=== PATIENT | female | born 1950 | race Caucasian/White ===

== ENCOUNTER 2023-07-17 10:33 | Observation (INO) ==
[2023-07-17] MEDS: MoRPHine SULFATE 4 MG/ML 1 ML CARP\\VIAL IV STA (11:00)
[2023-07-17 11:19] LABS: BUN Creatinine Ratio 16.1 (10-20); Calcium 9.3 mg/dl (8.6-10.3); Creatinine Clr Calc Pharmacy 92.9 ml/min; Est GFR (African American) 104.4 ml/min; Est GFR (Non-African American) 90.1 ml/min; Potassium 2.9 mmol/L (3.5-5.1)
[2023-07-17] MEDS: fentaNYL citrate PF 100 MCG/2 ML VIAL IV STA (11:27)
[2023-07-17] MEDS: ONDANSETRON INJ 2 MG/ML 2 ML VIAL IV STA (11:27)
[2023-07-17 11:30] LABS: Basophils # (auto) 0.03 K/uL (0.00-0.20); Basophils % (auto) 0.5 %; Eosinophils # (auto) 0.72 K/uL (0.00-0.50); Eosinophils % (auto) 11.6 %; Hematocrit (blood only) 35.1 % (37.0-47.0); Hemoglobin 10.9 g/dl (12.0-16.0); Immature Granulocytes # (auto) 0.02 K/uL (0.01-0.20); Immature Granulocytes % (auto) 0.3 %; Lymphocytes # (auto) 1.25 K/uL (1.20-3.40); Lymphocytes % (auto) 20.1 %; Mean Corpuscular Hemoglobin 25.6 pg (25.0-34.0); Mean Corpuscular Hgb Conc 31.1 g/dL (32.0-36.0); Mean Corpuscular Volume 82.6 fL (80.0-100.0); Mean Platelet Volume 10.2 fL (9.4-12.4); Monocytes # (auto) 0.51 K/uL (0.11-0.59); Monocytes % (auto) 8.2 %; Neutrophils # (auto) 3.68 K/uL (1.40-6.50); Neutrophils % (auto) 59.3 %; Platelet Count 341 K/uL (130-400); RDW Coefficient of Variation 16.4 % (11.5-14.5); RDW Standard Deviation 49.5 fL (36.4-46.3); Red Blood Count 4.25 M/uL (4.20-5.40); White Blood Count 6.21 K/ul (4.8-10.8)
[2023-07-17] MEDS: KETAMINE HCL IV ONE (11:30)
--- NOTE | 2023-07-17 11:30 | XRay Report ---
SINGLE VIEW PELVIS CLINICAL HISTORY: Arthroplasty dislocation. FINDINGS: An AP, portable, supine pelvic radiograph is compared to study dated 06/19/2023. The skeleta l structures are osteopenic. No fracture is seen. A left hip arthroplasty is in place. There is super ior dislocation of the femoral component of the arthroplasty. Mild overlying soft tissue edema is not ed. Moderate osteoarthritic change is seen in the right hip. Degenerative sclerosis is noted in the s acroiliac joints and pubic symphysis. IMPRESSION: 1. Left hip arthroplasty dislocation as above. 2. No fracture is seen. Electronically signed by: Phill Davila M.D. 07/17/2023 11:29 AM
[2023-07-17 11:39] LABS: Partial Thromboplastin Ratio 0.8; Partial Thromboplastin Time 21 Seconds (21-31); Prothrombin Time 11.2 Seconds (9.0-12.0)
--- NOTE | 2023-07-17 11:42 | Emergency Department Note ---
History of Present Illness General Chief complaint: Hip Pain Stated complaint: L HIP DISLOCATION, LETHARGIC Time Seen by Provider: 07/17/23 10:35 Source: patient and EMS History of Present Illness Provider complaint: Left hip dislocation Onset (ago): hour(s) 2 Location: lower extremity and left Maximum Pain Intensity: 10 Current Pain Intensity: 10 Quality: + stabbing and + sharp Relieved By: + immobilization Exacerbated By: + movement Associated symptoms: no chest pain, no cough, no fever/chills, no headaches, no nausea/vomiting or no shortness of breath 73-year-old female presents emergency department for left hip pain. Patient states she went to sit down on her chair and felt a pop in her left hip and felt like her hip was dislocated again. Patient denies any trauma or falls. She states she just went to sit down and felt a pop. Son at bedside confirms no fall or trauma. Patient reports pain in her left hip. Pain is made better with immobilization worse with movement. No headache. No abdominal pain. Patient states a similar episode occurred a few months ago where her hip was dislocated and needed to be reduced in the emergency department. Patient states she has not been wearing her brace as instructed. Patient states her left hip is a prosthetic that was operated on in [place] and the doctor in [place] stated that the dislocations could keep happening. EMS reported that the patient was initially hypotensive but really wanted to fluids. Home Medications Medication Instructions Recorded Confirmed Type doxycycline monohydrate 100 mg 100 mg PO BID 07/17/23 History capsule famotidine 40 mg tablet 40 mg PO DAILY 07/17/23 History furosemide 20 mg tablet 20 mg PO DAILY PRN Edema 07/17/23 History gabapentin 400 mg capsule 400 mg PO DAILY 07/17/23 History gabapentin 600 mg tablet 600 mg PO DAILY 07/17/23 History trazodone 100 mg tablet 100 mg PO UD 07/17/23 History Allergies Allergy/AdvReac Type Severity Reaction Status Date / Time No Known Allergies Allergy Unverified 07/17/23 12:22 Past Med/Surg History Problem List History of left hip replacement Hip dislocation, left Surgical History S/P hip replacement Social History Smoking Status: Former smoker Tobacco Type: Cigarettes Hx Substance Use: No Feels Safe at Home: Yes Physical Exam Vital Signs Vital Signs - 24 hr 07/17/23 10:40 07/17/23 10:40 07/17/23 10:45 Temperature 36.5 C Temperature Source Oral Pulse Rate 73 69 85 Pulse Rate from SpO2 Sensor Respiratory Rate 24 24 Respiratory Effort / Characteristics Non-Labored Spontaneous Respiratory Depth Normal Respiratory Pattern Agonal Blood Pressure 170/90 H Blood Pressure Mean 116 Pulse Oximetry 90 Oxygen Delivery Method Room Air Oxygen Flow Rate Sepsis Recent Fever Within 48 Hours No Sepsis New/Unexplained Change in Mental Status N/A Sepsis Action Taken by Nursing No Action Required End-Tidal CO2 07/17/23 10:57 07/17/23 10:58 07/17/23 11:18 Temperature Temperature Source Pulse Rate 93 H 89 Pulse Rate from SpO2 Sensor 91 H 69 Respiratory Rate 12 15 Respiratory Effort / Characteristics Respiratory Depth Respiratory Pattern Blood Pressure 185/114 H 185/114 H 193/118 H Blood Pressure Mean 137 148 143 Pulse Oximetry 97 100 Oxygen Delivery Method Non-rebreather Oxygen Flow Rate 15 Sepsis Recent Fever Within 48 Hours Sepsis New/Unexplained Change in Mental Status Sepsis Action Taken by Nursing End-Tidal CO2 29 07/17/23 11:26 07/17/23 11:27 07/17/23 11:40 Temperature Temperature Source Pulse Rate 90 79 Pulse Rate from SpO2 Sensor 89 Respiratory Rate 13 10 L Respiratory Effort / Characteristics Respiratory Depth Respiratory Pattern Blood Pressure 129/93 190/96 H Blood Pressure Mean 105 148 Pulse Oximetry 100 100 Oxygen Delivery Method Non-rebreather Oxygen Flow Rate 15 Sepsis Recent Fever Within 48 Hours Sepsis New/Unexplained Change in Mental Status Sepsis Action Taken by Nursing End-Tidal CO2 33 36 07/17/23 11:45 07/17/23 11:50 07/17/23 12:10 Temperature Temperature Source Pulse Rate 86 89 85 Pulse Rate from SpO2 Sensor 90 86 Respiratory Rate 12 12 14 Respiratory Effort / Characteristics Respiratory Depth Respiratory Pattern Blood Pressure 172/92 H 184/99 H 171/97 H Blood Pressure Mean 118 118 144 Pulse Oximetry 96 100 99 Oxygen Delivery Method Nasal Cannula Oxygen Flow Rate 4 Sepsis Recent Fever Within 48 Hours Sepsis New/Unexplained Change in Mental Status Sepsis Action Taken by Nursing End-Tidal CO2 38 39 41 07/17/23 12:15 Temperature Temperature Source Pulse Rate 85 Pulse Rate from SpO2 Sensor 86 Respiratory Rate 12 Respiratory Effort / Characteristics Respiratory Depth Respiratory Pattern Blood Pressure Blood Pressure Mean Pulse Oximetry 97 Oxygen Delivery Method Oxygen Flow Rate Sepsis Recent Fever Within 48 Hours Sepsis New/Unexplained Change in Mental Status Sepsis Action Taken by Nursing End-Tidal CO2 41 Physical Exam HENT: Exam performed. -Head: Normocephalic and atraumatic. -Right Ear: External ear normal. No mastoid erythema -Left Ear: External ear normal. No mastoid erythema -Mouth/Throat: The oropharynx is clear and moist. No trismus in the jaw. No dental abscesses or uvula swelling. No oropharyngeal exudate or tonsillar abscesses. EYES: Conjunctivae and EOM are normal. Pupils are equal, round, and reactive to light. Right eye exhibits no discharge. Left eye exhibits no discharge. No scleral icterus. NECK: Normal range of motion. Neck supple. No JVD present. No spinous process tenderness present. CV: Normal rate, regular rhythm, normal heart sounds and intact distal pulses. There is no peripheral edema. Palpable radial pulses bue. PULM/CHEST: Effort normal and breath sounds normal. No respiratory distress. No stridor. She has no wheezes. She has no rales. ABD: The abdomen is soft. There is no tenderness. There is no rebound, no guarding MUSC/SKEL: Pain on palpation of the left hip. Left lower extremity is shortened and internally rotated. Palpable DP and PT pulses bilateral lower extremities. NEURO: Motor and sensation grossly intact GCS eye subscore is 4. GCS verbal subscore is 5. GCS motor subscore is 6. Cerebellar tests wnl. Procedures FAST Exam FAST Exam 1: Fluid in Morison's pouch: No Fluid in Splenorenal Junction: No Fluid around bladder, Transverse view: No Fluid around bladder, Sagittal view: No Fluid in Pericardial Sac: No Gross Wall Motion Abnormality: No Study normal for this patient: Yes Procedural Sedation Indication: fracture/dislocation reduction ASA Class: II Preparation: synthetic gem press operator applied, pulse oximeter, capnometry used, supplemental O2 applied, suction/airway equipment at bedside and IV secured Fentanyl: IV (100 micrograms) Ketamine: IV (42.5) Patient Tolerated Procedure: well Complications: none Additional Comments: Procedural Sedation Indication: reduction L hip. Total time: 16 minutes. Written consent was obtained after the risks and benefits were explained to the paitent and son, including, but not limited to aspiration, allergic reaction, breathing difficulties, cardiac complications, vomiting, pain, event recall, bleeding, and/or infection. Pre-sedation examination and paperwork completed. The patient was on 100% oxygen via NRB prior to the procedure. Continous end tidal CO2 monitoring, pulse oximetry, and cardiac monitoring were utilized. Suction, airway equipment, medications, respiratory equipment, and appropriate personnel were prepared prior to the initiation of the procedure. A time out was taken. Sedation was achieved utilizing 42.5 mg of ketamine. After I observed the patient had reached the appropriate level of sedation the main procedure was performed without complication. Sedation was discontinued and the monitoring continued. The patient recovered quickly from the effects of the medication without complication or adverse event. Course Course 1035: The patient was evaluated in room A1. A complete history and physical exam was performed Cardiac monitoring: An order was placed for continuous cardiac monitoring. The monitor shows a rate of 80 with sinus rhythm interpreted by me Clinically the patient's lower extremity looks dislocated. Will plan on reduction in the emergency department. 1240: Vital signs stable. Hip was reduced by Dr. Hyde see his procedure note. Patient and son states that the patient cannot go back home as he lives at home with many steps and they are requesting that the patient be evaluated for rehab. Patient will be admitted to the [facility] team. Discussed case with Dr. Buckley who agrees patient can be admitted to them and agrees to be on consult and that the patient might need placement at rehab facility. He states he can be on consult. Administered Medications Discontinued Medications Fentanyl Citrate (Fentanyl Citrate Pf 100 Mcg/2 Ml Vial) 100 mcg IV NOW STA Stop: 07/17/23 11:21 Last Admin: 07/17/23 11:27 Dose: 100 mcg Documented By: BS Ketamine HCl 85 mg/ Syringe 9.7 mls @ 9.7 mls/min IV NOW ONE Stop: 07/17/23 11:05 Last Admin: 07/17/23 11:30 Dose: 9.7 mls/min Documented By: SS Morphine Sulfate (Morphine Sulfate 4 Mg/Ml 1 Ml Carp\Vial) 4 mg IV NOW STA Stop: 07/17/23 10:51 Last Admin: 07/17/23 11:00 Dose: 4 mg Documented By: JERRYW Ondansetron HCl (Ondansetron Inj 2 Mg/Ml 2 Ml Vial) 4 mg IV NOW STA Stop: 07/17/23 11:21 Last Admin: 07/17/23 11:27 Dose: 4 mg Documented By: GELA Propofol (Propofol Iv Emulsion 10 Mg/Ml 20 Ml Vial) 200 mg IV NOW STA Stop: 07/17/23 11:00 Last Admin: 07/17/23 11:43 Dose: Not Given Documented By: KRISTINE Medical Decision Making Laboratory Data Attestation: I reviewed the patient's lab results. 07/17/23 10:55 07/17/23 10:55 Lab Results 07/17/23 Range/Units 10:55 WBC 6.21 (4.8-10.8) K/ul RBC 4.25 (4.20-5.40) M/uL Hgb 10.9 L (12.0-16.0) g/dl Hct 35.1 L (37.0-47.0) % MCV 82.6 (80.0-100.0) fL MCH 25.6 (25.0-34.0) pg MCHC 31.1 L (32.0-36.0) g/dL RDW Std Deviation 49.5 H (36.4-46.3) fL RDW Coeff of Rosette 16.4 H (11.5-14.5) % Plt Count 341 (130-400) K/uL MPV 10.2 (9.4-12.4) fL Immature Gran % (Auto) 0.3 % Neut % (Auto) 59.3 % Lymph % (Auto) 20.1 % Saline % (Auto) 8.2 % Eos % (Auto) 11.6 % Baso % (Auto) 0.5 % Neut # (Auto) 3.68 (1.40-6.50) K/uL Lymph # (Auto) 1.25 (1.20-3.40) K/uL Saline # (Auto) 0.51 (0.11-0.59) K/uL Eos # (Auto) 0.72 H (0.00-0.50) K/uL Baso # (Auto) 0.03 (0.00-0.20) K/uL Immature Gran # (Auto) 0.02 (0.01-0.20) K/uL PT 11.2 (9.0-12.0) Seconds INR 1.0 (0.9-1.1) APTT 21 (21-31) Seconds PTT Ratio 0.8 Sodium 140 (136-145) mmol/L Potassium 2.9 L (3.5-5.1) mmol/L Chloride 105 (98-107) mmol/L Carbon Dioxide 26 (21-32) mmol/L Anion Gap 9 (3-11) BUN 10 (6-23) mg/dl Creatinine 0.62 (0.6-1.2) mg/dl Est Cr Clr Drug Dosing 92.9 ml/min Est GFR ( Amer) 104.4 ml/min Est GFR (Non-Af Amer) 90.1 ml/min BUN/Creatinine Ratio 16.1 (10-20) Glucose 111 H (70-99(Fasting)) mg/dl Calcium 9.3 (8.6-10.3) mg/dl Imaging Data Attestation: I personally reviewed and interpreted this imaging study as follows: My Impression: Pelvis x-ray #1: Left hip dislocation. No fracture. Pelvis x-ray #2: Successful reduction of the left hip. No fracture. Radiologist's Impression: Pelvis X-Ray 07/17/23 10:36 SINGLE VIEW PELVIS CLINICAL HISTORY: Arthroplasty dislocation. FINDINGS: An AP, portable, supine pelvic radiograph is compared to study dated 06/19/2023. The skeletal structures are osteopenic. No fracture is seen. A left hip arthroplasty is in place. There is superior dislocation of the femoral component of the arthroplasty. Mild overlying soft tissue edema is noted. Moderate osteoarthritic change is seen in the right hip. Degenerative sclerosis is noted in the sacroiliac joints and pubic symphysis. IMPRESSION: 1. Left hip arthroplasty dislocation as above. 2. No fracture is seen. Electronically signed by: Phill Davila M.D. 07/17/2023 11:29 AM Pelvis X-Ray 07/17/23 11:32 SINGLE VIEW PELVIS CLINICAL HISTORY: Postreduction examination. FINDINGS: An AP, portable, supine pelvic radiograph is compared to study performed earlier the same day 07/17/2023. The skeletal structures are osteopenic. No fracture is seen. There has been successful reduction of the dislocated left hip arthroplasty with methodist of near-anatomic alignment. Mild overlying soft tissue edema is noted. Moderate to severe osteoarthritic change is seen in the right hip. Degenerative sclerosis is noted in the sacroiliac joints and pubic symphysis. There is atherosclerotic calcification of the femoral arteries. IMPRESSION: 1. There has been successful. Reduction of the dislocated left hip arthroplasty with methodist of near-anatomic alignment. 2. No fracture is seen. Electronically signed by: Phill Davila M.D. 07/17/2023 12:07 PM ECG Data Attestation: I personally reviewed and interpreted this ECG as follows: Rate (beats per minute): 67 Rhythm: + normal sinus ECG Intervals/blocks: + Normal MN and + Normal QT-c ECG ST segments: + Normal ST segments Additional Comments: QRS 72 MDM Narrative 1035: The patient was evaluated in room A1. A complete history and physical exam was performed Cardiac monitoring: An order was placed for continuous cardiac monitoring. The monitor shows a rate of 80 with sinus rhythm interpreted by me Clinically the patient's lower extremity looks dislocated. Will plan on reduction in the emergency department. 1240: Vital signs stable. Hip was reduced by Dr. Hyde see his procedure note. Patient and son states that the patient cannot go back home as he lives at home with many steps and they are requesting that the patient be evaluated for rehab. Patient will be admitted to the [facility] hospitalist team. Discussed case with Dr. Buckley who agrees patient can be admitted to them and agrees to be on consult and that the patient might need placement at rehab facility. He states he can be on consult. Impression & Plan Hip dislocation, left Discharge Plan Visit Data Chief Complaint: Hip Pain Stated Complaint: L HIP DISLOCATION, LETHARGIC ED Provider: Richard Crockett Discharge Problem: Hip dislocation, left Patient Disposition: Being Evaluated by Hospitalist Forms Stand Alone Forms: My [facility] Prescriptions Prescriptions: No Action gabapentin 600 mg tablet 600 mg PO DAILY famotidine 40 mg tablet 40 mg PO DAILY gabapentin 400 mg capsule 400 mg PO DAILY trazodone 100 mg tablet 100 mg PO UD doxycycline monohydrate 100 mg capsule 100 mg PO BID furosemide 20 mg tablet 20 mg PO DAILY PRN (Reason: Edema) Referrals Referrals: Dao Jefferson PA-C [Primary Care Provider] - Discharge Problem: Hip dislocation, left Qualifiers: Encounter type: initial encounter Qualified Code(s): S73.005A - Unspecified dislocation of left hip, initial encounter
[2023-07-17] MEDS: PROPOFOL IV EMULSION 10 MG/ML 20 ML VIAL IV STA (11:43)
--- NOTE | 2023-07-17 11:43 | Emergency Department Note ---
Pre Sedation Assessment Vital Signs Temp Pulse Pulse Resp BP BP Pulse Ox 07/17/23 13:00 79 25 H 94 07/17/23 13:00 177/112 H 07/17/23 12:49 70 16 162/121 H 97 07/17/23 12:41 162/121 H 07/17/23 12:27 79 96 07/17/23 12:21 88 99 07/17/23 12:20 176/98 H 07/17/23 12:18 85 11 L 97 07/17/23 12:15 85 12 97 07/17/23 12:10 85 14 171/97 H 99 07/17/23 11:50 89 12 184/99 H 100 07/17/23 11:46 07/17/23 11:45 12 203/115 H 94 07/17/23 11:45 86 12 172/92 H 96 07/17/23 11:45 07/17/23 11:40 94 H 18 201/115 H 100 07/17/23 11:40 79 10 L 190/96 H 100 07/17/23 11:40 07/17/23 11:35 85 10 L 190/96 H 100 07/17/23 11:35 07/17/23 11:30 99 H 11 L 201/116 H 100 07/17/23 11:30 07/17/23 11:27 90 13 100 07/17/23 11:26 129/93 07/17/23 11:18 89 15 193/118 H 100 07/17/23 10:58 185/114 H 07/17/23 10:57 93 H 12 185/114 H 97 07/17/23 10:45 85 24 07/17/23 10:40 69 07/17/23 10:40 36.5 C 73 24 170/90 H 90 O2 Del Method O2 Flow Rate 07/17/23 13:00 07/17/23 13:00 07/17/23 12:49 Room Air 07/17/23 12:41 07/17/23 12:27 07/17/23 12:21 07/17/23 12:20 07/17/23 12:18 07/17/23 12:15 07/17/23 12:10 07/17/23 11:50 07/17/23 11:46 Room Air 07/17/23 11:45 Nasal Cannula 07/17/23 11:45 Nasal Cannula 4 07/17/23 11:45 Nasal Cannula 4 07/17/23 11:40 07/17/23 11:40 Non-rebreather 15 07/17/23 11:40 Non-rebreather 15 07/17/23 11:35 Non-rebreather 07/17/23 11:35 Non-rebreather 15 07/17/23 11:30 Non-rebreather 07/17/23 11:30 Non-rebreather 15 07/17/23 11:27 07/17/23 11:26 07/17/23 11:18 Non-rebreather 15 07/17/23 10:58 07/17/23 10:57 07/17/23 10:45 07/17/23 10:40 07/17/23 10:40 Room Air Cardiovascular RRR, no murmur, no edema Respiratory normal respiratory effort, lungs clear to auscultation Pre-Sedation Airway Assessment Smoking Status: Former smoker Hx Sleep Apnea: No Short, Thick Neck: No Thyromental Distance: > or= 3.5 Finger Breadths Oral Cavity: + WNL Mallampati Class: III ASA: ASA1 Notes The planned sedation has been discussed with the patient. Informed Consent was obtained. I have identified the patient, determined the appropriateness of sedation and have assessed the patient immediately prior to the procedure. All medicine(s) and interventions are by my order.
--- NOTE | 2023-07-17 11:58 | History & Physical Report ---
Date of Service July 17, 2023 Assessment & Plan (1) Hip dislocation, left: Plan: Patient was sitting in bent over and felt a "pop" in her left hip on 07/16 Recent left hip dislocation on 06/18 Pelvic x-ray on arrival revealed left hip arthroplasty dislocation Hip was reduced in the ED under ketamine and propofol; successful reduction Orthopedics consulted Acetaminophen as needed for pain 1-3 Dilaudid 0.5-1.0 mg IV q4h as needed for breakthrough pain PT/OT evaluations appreciated Fall precautions Case management consulted for rehab upon discharge A.m. CBC, BMP (2) History of left hip replacement: Plan: Left hip replacement in January 2023, and fall/revision in April 2023 (both in [place]) (3) Hypokalemia: Plan: K 2.9 on arrival Potassium supplementation 20mEq x 2 Trend BMP (4) Leg swelling: Plan: Patient began taking Lasix 10 mg p.o. 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 She presented on 07/16 after sitting in a chair and feeling her left hip "pop". No syncope, no LOC, no fall. She reports that she sat down in her chair, and bent over/twisted her leg from left to right (internal rotation) and suddenly heard a pop with severe left hip pain. Patient had the hip reduced in the ED, and is currently left hip pain-free. Recent hip replacement in January 2023, with a fall in April 2023 requiring additional surgery. Patient recently moved in with her son in the beginning of June; was previously living in [place]. She has had 2 hip dislocations since, with the last being on Sunday 06/18, and then again today on 07/16. Patient ambulates with a walker/cane at baseline, but reports she has not been using it recently. She denies any recent falls since April. Patient did take her morning medications, including her doxycycline which she takes chronically for suppressive therapy following a PICC line/staph infection. The only medication she did not take this morning was her "water pill". She does note she is had increased leg swelling recently; no PMH of CHF to her knowledge; she was scheduled for an echocardiogram this upcoming Wednesday on 07/22. Patient also notes she has a history of seizures, but is not currently on medications for thi s; son reports that she will stare off into blank space; no LOC when this happens. Patient's SpO2 was 100% on nonrebreather 15 L. ED course: Morphine sulfate 4 mg IV Propofol 200 mg IV Ketamine 85 mg IV Zofran 4 mg IV Fentanyl 100 mcg IV ROS: Patient endorses left hip pain, lightheadedness with walking, feeling off balance, ambulatory dysfunction, FERNÁNDEZ, and orthopnea. Patient denies fever, chills, night sweats, new body aches, headache, chest pain, SOB at rest, chest palpitations, pleuritic CP, cough, abdominal pain, or N/V/D. Allergies Allergy/AdvReac Type Severity Reaction Status Date / Time No Known Allergies Allergy Unverified 07/17/23 12:22 Home Medications Medication Instructions Recorded Confirmed Type cetirizine 10 mg tablet 10 mg PO DAILY 07/17/23 07/17/23 History doxycycline monohydrate 100 mg 100 mg PO BID 07/17/23 07/17/23 History capsule famotidine 40 mg tablet 40 mg PO DAILY 07/17/23 07/17/23 History furosemide 20 mg tablet 20 mg PO DAILY PRN Edema 07/17/23 07/17/23 History gabapentin 400 mg capsule 400 mg PO DAILY 07/17/23 07/17/23 History gabapentin 600 mg tablet 600 mg PO DAILY 07/17/23 07/17/23 History trazodone 100 mg tablet 200 mg PO HS 07/17/23 07/17/23 History Past Med/Surg History Problem List (Updated 07/17/23 @ 12:52 by Jamarcus Owens PA-C) History of staphylococcal infection Ambulatory dysfunction Hypokalemia Leg swelling History of left hip replacement Hip dislocation, left Surgical History S/P hip replacement Social History Smoking Status: Former smoker Tobacco Type: Cigarettes Smoking End Date: 2 years ago; Second Hand Exposure: No; Do You Dip or Chew Tobacco: No; Tobacco Cessation Education Requested by Patient: No Hx Alcohol Use: No Hx Substance Use: No Preferred Language: South African Communication Ability: Effective Wheel Cutter Required: No Beliefs That Will Affect Care: None Current Living Situation: Family Current Living Situation Comment: With son Other Information That Helps Us Care for You: No Feels Safe at Home: Yes Safety Concerns: Feels Safe At This Time Assistive Devices: Cane and Walker Review of Systems Review of Systems: See HPI above Physical Exam Physical Exam: General: no acute distress; non-toxic appearing; well-nourished; cooperative HEENT: normocephalic, atraumatic; no scleral icterus; PERRLA w/ EOMs intact; moist mucus membrane; vision and hearing grossly intact Neck: supple; no lymphadenopathy; trachea midline Skin: warm, dry without signs of tenting; no cyanosis; no rashes, bruising, lesions, or erythema noted CV: chest wall NTP; RRR; S1/S2 normal; no murmurs/rubs/gallops; pulses intact and symmetric at radial, DP, and PT Lungs: no acute respiratory distress; symmetrical chest wall expansion; clear breath sounds across all lung lovell w/o adventitious sounds; no wheezing ABD: Soft, NTP; BS present; no rebound/guarding; no distention LLE: Left hip is TTP; no signs of bruising or active bleeding; mild pain with passive ROM of left hip MSK: no tics or fasciculations; nonpitting edema noted in the LEs b/l, nonerythematous Neuro: A&Ox3; normal mood and affect; fluent speech; no focal deficits; sensation grossly intact in the LEs b/l Results & Data Results & Data Vital Signs (Past 12 Hours) Vital Signs Temp Pulse Resp BP Pulse Ox O2 Del Method O2 Flow Rate 07/17/23 11:27 90 13 100 07/17/23 11:26 129/93 07/17/23 11:18 89 15 193/118 H 100 Non-rebreather 15 07/17/23 10:58 185/114 H 07/17/23 10:57 93 H 12 185/114 H 97 07/17/23 10:45 85 24 07/17/23 10:40 69 07/17/23 10:40 36.5 C 73 24 170/90 H 90 Room Air Laboratory Results Abnormal lab results 07/17/23 Range/Units 10:55 Hgb 10.9 L (12.0-16.0) g/dl Hct 35.1 L (37.0-47.0) % MCHC 31.1 L (32.0-36.0) g/dL RDW Std Deviation 49.5 H (36.4-46.3) fL RDW Coeff of Rosette 16.4 H (11.5-14.5) % Eos # (Auto) 0.72 H (0.00-0.50) K/uL Potassium 2.9 L (3.5-5.1) mmol/L Glucose 111 H (70-99(Fasting)) mg/dl Diagnostic Findings Pelvis X-Ray 07/17/23 10:36 SINGLE VIEW PELVIS CLINICAL HISTORY: Arthroplasty dislocation. FINDINGS: An AP, portable, supine pelvic radiograph is compared to study dated 06/19/2023. The skeletal structures are osteopenic. No fracture is seen. A left hip arthroplasty is in place. There is superior dislocation of the femoral component of the arthroplasty. Mild overlying soft tissue edema is noted. Moderate osteoarthritic change is seen in the right hip. Degenerative sclerosis is noted in the sacroiliac joints and pubic symphysis. IMPRESSION: 1. Left hip arthroplasty dislocation as above. 2. No fracture is seen. Electronically signed by: Phill Davila M.D. 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 She did not have any syncopal or presyncopal events prior to falling. Family expresses concern that patient has had difficulty ambulating, is too weak in her home environment, and is not safe and also requests a placement evaluation. Her hip was reduced under ketamine/propofol sedation in the ER; patient has subsequently been recommended for admission for placement which is not available on the weekend from ER. Of note patient was not lethargic or altered on arrival, is on nonrebreather following propofol/ketamine/fentanyl/morphine which were used during her reduction and was transiently sedated. At time of hospitalist assessment she is mentating normally, conversational without confusion, no distress, and is saturating normally on room air. With ER provider was distressed and tearful over her recurrent dislocations of the prosthesis. Son is present with her at bedside and they note that her recurrent dislocations and overall weakness are very limiting to her, they are not able to use the bathrooms appropriately at home and is not well set up, and she has not had good success previously with PT when they were in [place]. Are interested in PT/OT/CM consultations to discuss options. case was discussed with Ortho in the ER, no surgical revision or interventions were recommended. PG Care Time/CCT Total # of Minutes Spent Total Time Spent with Patient: Total time spent is greater than 50% in coordination of care (as documented) at patient's floor/unit and/or counseling patient: [place] [address] INT INP/OBS CARE 2/55MIN Patient Type New History Comprehensive Exam Comprehensive Medical Decision Making Moderate Complexity Diagnoses Hip dislocation, left S73.005A History of left hip replacement Z96.642 Hypokalemia E87.6 Leg swelling M79.89 History of staphylococcal infection Z86.19 Ambulatory dysfunction R26.2
--- NOTE | 2023-07-17 12:08 | XRay Report ---
SINGLE VIEW PELVIS CLINICAL HISTORY: Postreduction examination. FINDINGS: An AP, portable, supine pelvic radiograph is compared to study performed earlier the same d ay 07/17/2023. The skeletal structures are osteopenic. No fracture is seen. There has been successful r eduction of the dislocated left hip arthroplasty with denominational of near-anatomic alignment. Mild ov erlying soft tissue edema is noted. Moderate to severe osteoarthritic change is seen in the right hip . Degenerative sclerosis is noted in the sacroiliac joints and pubic symphysis. There is atherosclero tic calcification of the femoral arteries. IMPRESSION: 1. There has been successful. Reduction of the dislocated left hip arthroplasty with denominational of n ear-anatomic alignment. 2. No fracture is seen. Electronically signed by: Phill Davila M.D. 07/17/2023 12:07 PM
[2023-07-17] MEDS: POTASSIUM CHLORIDE CRTAB 20 MEQ TABCR PO STA (12:53)
--- NOTE | 2023-07-17 14:09 | Emergency Department Note ---
Post Sedation Assessment Vital Signs Temp Pulse Pulse Resp BP BP Pulse Ox 07/17/23 13:00 79 25 H 94 07/17/23 13:00 177/112 H 07/17/23 12:49 70 16 162/121 H 97 07/17/23 12:41 162/121 H 07/17/23 12:27 79 96 07/17/23 12:21 88 99 07/17/23 12:20 176/98 H 07/17/23 12:18 85 11 L 97 07/17/23 12:15 85 12 97 07/17/23 12:10 85 14 171/97 H 99 07/17/23 11:50 89 12 184/99 H 100 07/17/23 11:46 07/17/23 11:45 12 203/115 H 94 07/17/23 11:45 86 12 172/92 H 96 07/17/23 11:45 07/17/23 11:40 94 H 18 201/115 H 100 07/17/23 11:40 79 10 L 190/96 H 100 07/17/23 11:40 07/17/23 11:35 85 10 L 190/96 H 100 07/17/23 11:35 07/17/23 11:30 99 H 11 L 201/116 H 100 07/17/23 11:30 07/17/23 11:27 90 13 100 07/17/23 11:26 129/93 07/17/23 11:18 89 15 193/118 H 100 07/17/23 10:58 185/114 H 07/17/23 10:57 93 H 12 185/114 H 97 07/17/23 10:45 85 24 07/17/23 10:40 69 07/17/23 10:40 36.5 C 73 24 170/90 H 90 O2 Del Method O2 Flow Rate 07/17/23 13:00 07/17/23 13:00 07/17/23 12:49 Room Air 07/17/23 12:41 07/17/23 12:27 07/17/23 12:21 07/17/23 12:20 07/17/23 12:18 07/17/23 12:15 07/17/23 12:10 07/17/23 11:50 07/17/23 11:46 Room Air 07/17/23 11:45 Nasal Cannula 07/17/23 11:45 Nasal Cannula 4 07/17/23 11:45 Nasal Cannula 4 07/17/23 11:40 07/17/23 11:40 Non-rebreather 15 07/17/23 11:40 Non-rebreather 15 07/17/23 11:35 Non-rebreather 07/17/23 11:35 Non-rebreather 15 07/17/23 11:30 Non-rebreather 07/17/23 11:30 Non-rebreather 15 07/17/23 11:27 07/17/23 11:26 07/17/23 11:18 Non-rebreather 15 07/17/23 10:58 07/17/23 10:57 07/17/23 10:45 07/17/23 10:40 07/17/23 10:40 Room Air Recovery Score Activity: Moves 4 extremities Respiration: Deep Breath/Cough Circulation: +/-20% PreAnes Value Consciousness: Fully Awake Oxygen Saturation: > 92% On Room Air Post Anesthesia Score: 10 Post Sedation Plan On clinical assessment, the patient appears to have tolerated the sedation wi thout complications. Patient is recovering as anticipated. Patient will continue to be monitored by nursing and may be discharged when sedation discharge criteria are met per below protocol. Upon Completions of procedure up to 15 minutes continue every 5 minute vital signs and the P.A.R. score; then discharge to a Phase I or Fast Track to Phase II per the following guidelines: * Discharge Patient to appropriate Phase II area if PAR is 8 or greater or return to pre- procedure baseline. The post - procedure orders will be as directed. * If PAR score is less than 8 or not return to pre-procedure baseline then patient will follow Phase I monitoring till PAR is reached for Phase II. The Phase I may be done in procedure room or may call to secure a Phase I area. * If naloxone or flumazenil are used for reversal, hold in Phase I for continued monitoring from when last reversal dose was given for a minimum of 60 minutes or longer pending the nurse and/or physician discretion of patient condition before discharge to Phase II. Please call the Sedation Physician to re-evaluate and complete post-note for discharge to Phase II area. Do NOT discharge from procedure sedation or Phase 1 until post- sedation evaluation note is complete by procedure /sedation MD Sedation Discharge Instructions to be given to the patient at discharge to home. Sedation Data Sedation Times Sedation Start Date: 07/17/23 Sedation Start Time: 11:30 Sedation End Date: 07/17/23 Sedation End Time: 11:46 Total Sedation Time: 16 Procedure Times Procedure Start Time:: 11:30 Procedure End Time: 11:32
[2023-07-17] MEDS ORDERED: MoRPHine SULFATE 2 MG/ML CARP IV PRN (14:29)
[2023-07-17] MEDS ORDERED: MoRPHine SULFATE 4 MG/ML 1 ML CARP\\VIAL IV PRN (14:29)
[2023-07-17] MEDS ORDERED: MELATONIN 3 MG TAB PO PRN (14:29)
[2023-07-17] MEDS: STAT IV/IM STA (15:46)
--- NOTE | 2023-07-17 15:49 | XRay Report ---
LEFT HIP 2 VIEWS CLINICAL HISTORY: Left hip pain. FINDINGS: AP and crosstable lateral views of the left hip are compared to studies performed earlier t he same day 07/17/2023. The skeletal structures are osteopenic. A bipolar left hip arthroplasty is in n ear anatomic alignment. No periprosthetic lucency is seen. There is no radiographic evidence of acute fracture involving the left hip or the visualized left hemipelvis. Mild overlying soft tissue edema is noted. There atherosclerotic calcification of the left femoral artery. IMPRESSION: 1. No acute fracture is identified. 2. A left hip arthroplasty is in near anatomic alignment. Electronically signed by: Phill Davila M.D. 07/17/2023 3:47 PM
[2023-07-17] MEDS: FAMOTIDINE 40 MG TABLET PO SCH (16:39)
[2023-07-17] MEDS: CETIRIZINE HCL 10 MG TABLET PO SCH ×2 (16:41→22:45)
[2023-07-17 17:47] LABS: Calcium 8.9 mg/dl (8.6-10.3); Creatinine Clr Calc Pharmacy 109.6 ml/min; Est GFR (African American) 109.9 ml/min; Est GFR (Non-African American) 94.9 ml/min; Magnesium 1.8 mg/dl (1.7-2.4); Potassium 3.1 mmol/L (3.5-5.1)
--- NOTE | 2023-07-17 18:40 | Procedure Note ---
Procedure Note Date of Service July 17, 2023 Note Left hip dislocation reduction procedure performed by Dr. Hyde Indication: Left hip dislocation Verbal & signed consent obtained. Risks and benefits were explained with the usual customary discussion. A time out was taken. Neurovascular examination before the procedure revealed good pedal pulse and normal sensation. The left hip dislocation was reduced by flexing the hip and subsequently applying mild internal/external rotation and then placing the hip at inline traction. This resulted in an easy reduction without complication. Neurovascular examination after the procedure revealed good pedal pulse with normal sensation. The patient had significant pain relief and tolerated the procedure well. Coding
[2023-07-17] MEDS: POTASSIUM CHLORIDE CRTAB 20 MEQ TABCR PO ONE (20:37)
[2023-07-17] MEDS: DOXYCYCLINE HYCLATE 100 MG CAP PO SCH (20:38)
[2023-07-17] MEDS: traZODone HCL 100 MG TAB PO SCH (20:38)
[2023-07-17] MEDS: ACETAMINOPHEN 325 MG TAB PO PRN (20:38)
[2023-07-17] MEDS ORDERED: Nursing to Pharmacy Communication SCH (21:45)
[2023-07-17] MEDS: GABAPENTIN 400 MG CAP PO SCH (22:44)
[2023-07-17] MEDS: HYDROCORTISONE 2.5% CR 30 GM TUBE EXT PRN (22:45)
[2023-07-17] MEDS: GABAPENTIN 600 MG TAB PO SCH (22:45)
[2023-07-17] MEDS: KETOROLAC TROMETHAMINE 15 MG/ML VIAL IV ONE (23:11)
--- NOTE | 2023-07-18 07:14 | Electrocardiogram Report ---
Test Reason : Blood Pressure : / mmHG Vent. Rate : 067 BPM Atrial Rate : 067 BPM P-R Int : 172 ms QRS Dur : 072 ms QT Int : 440 ms P-R-T Axes : 058 056 059 degrees QTc Int : 464 ms Normal sinus rhythm with sinus arrhythmia No previous ECGs available Confirmed by Tate Krause ([id number]) on 07/18/2023 7:14:32 AM Referred By: REFERRED SELF Confirmed By:Troy Krause
[2023-07-18 08:01] LABS: Basophils # (auto) 0.04 K/uL (0.00-0.20); Basophils % (auto) 0.8 %; Eosinophils # (auto) 0.94 K/uL (0.00-0.50); Eosinophils % (auto) 17.7 %; Hematocrit (blood only) 31.1 % (37.0-47.0); Hemoglobin 9.6 g/dl (12.0-16.0); Immature Granulocytes # (auto) 0.01 K/uL (0.01-0.20); Immature Granulocytes % (auto) 0.2 %; Lymphocytes # (auto) 1.32 K/uL (1.20-3.40); Lymphocytes % (auto) 24.8 %; Mean Corpuscular Hemoglobin 25.7 pg (25.0-34.0); Mean Corpuscular Hgb Conc 30.9 g/dL (32.0-36.0); Mean Corpuscular Volume 83.4 fL (80.0-100.0); Mean Platelet Volume 9.5 fL (9.4-12.4); Monocytes # (auto) 0.46 K/uL (0.11-0.59); Monocytes % (auto) 8.6 %; Neutrophils # (auto) 2.55 K/uL (1.40-6.50); Neutrophils % (auto) 47.9 %; Platelet Count 309 K/uL (130-400); RDW Coefficient of Variation 16.4 % (11.5-14.5); RDW Standard Deviation 49.6 fL (36.4-46.3); Red Blood Count 3.73 M/uL (4.20-5.40); White Blood Count 5.32 K/ul (4.8-10.8)
[2023-07-18 08:20] LABS: BUN Creatinine Ratio 16.9 (10-20); Calcium 8.6 mg/dl (8.6-10.3); Creatinine Clr Calc Pharmacy 98.4 ml/min; Est GFR (African American) 106.1 ml/min; Est GFR (Non-African American) 91.6 ml/min; Potassium 3.6 mmol/L (3.5-5.1)
[2023-07-18] MEDS ORDERED: GABAPENTIN 600 MG TAB PO SCH (09:00)
[2023-07-18] MEDS ORDERED: GABAPENTIN 400 MG CAP PO SCH (09:00)
--- NOTE | 2023-07-18 09:40 | Orthopedic Consultation ---
Date of Consultation July 18, 2023 Assessment & Plan (1) Prosthetic hip infection: (2) S/P closed reduction of dislocated total hip prosthesis: Findings discussed with patient. Complex situation. Hip infection with MRSA. Now unstable. On chronic suppressive antibiotics. Current recommendations are reinforcement of total hip precautions which I have done. Will get her a hip abduction brace. She can be out of bed with a knee immobilizer on weightbearing as tolerated with walker and PT. She will need follow-up with a specialist capable of taking care of of this complex situation. Possible tertiary care center. This can be set up as an outpatient. Aspirin for DVT prophylaxis. (3) History of left hip replacement: (4) Hip dislocation, left: History of Present Illness Attending Physician: Giuseppe Fofana MD History of Present Illness Janay is 73 years old. In January she had a left hip replacement done in [place]. She reports that somehow early after surgery she was diagnosed with MRSA. She was treated with antibiotics for that while she was at rehab. She then went home and was functioning fine. In March she developed pain in her hip and apparently developed sepsis. She laid in her home for 2 or 3 days with altered level of consciousness due to sepsis. Unable to summon help. Eventually her family could not contact her and summoned the granulator who checked on her. She was taken to the hospital where she was diagnosed with MRSA sepsis. Hip aspiration she reports had MRSA fluid in it. She then had another hip operation in April where the infection was cleaned out and the plastic liner was exchanged. She does not recall any more specific details than that. Subsequently she was on intravenous antibiotics for a number of weeks and has remained on chronic doxycycline. She moved to [place]. She admits to not being fully compliant with her hip precautions. About 1 month ago she was bending over dislocated her hip and had a reduced in the ER. Just yesterday she bent over again and her hip popped out. The it was reduced in the ER and she was admitted to the hospital. She reports no major issues other than the dislocation since the revision surgery. She has not been having serious hip pain or wound drainage. Allergies Allergy/AdvReac Type Severity Reaction Status Date / Time No Known Allergies Allergy Unverified 07/17/23 12:22 Home Medications Medication Instructions Recorded Confirmed Type cetirizine 10 mg tablet 10 mg PO DAILY 07/17/23 07/17/23 History doxycycline monohydrate 100 mg 100 mg PO BID 07/17/23 07/17/23 History capsule famotidine 40 mg tablet 40 mg PO DAILY 07/17/23 07/17/23 History furosemide 20 mg tablet 20 mg PO DAILY PRN Edema 07/17/23 07/17/23 History gabapentin 400 mg capsule 400 mg PO DAILY 07/17/23 07/17/23 History gabapentin 600 mg tablet 600 mg PO DAILY 07/17/23 07/17/23 History trazodone 100 mg tablet 200 mg PO HS 07/17/23 07/17/23 History Patient History Surgical History (Updated 07/18/23 @ 09:37 by Mikie Buckley MD) S/P hip replacement Social History Smoking Status: Former smoker Tobacco Type: Cigarettes Smoking End Date: 2 years ago; Second Hand Exposure: No; Do You Dip or Chew Tobacco: No; Tobacco Cessation Education Requested by Patient: No Hx Alcohol Use: No Hx Substance Use: No Preferred Language: Vietnamese Communication Ability: Effective Pow[employer] 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 May be a pos terior approach to the hip. The incision is benign. There is no erythema induration drainage or fluctuance. No tenderness to palpation. Left hip. She can do a leg lift and flex her knee about 30 degrees. She has 5 out of 5 ankle and toe plantarflexion dorsiflexion inversion eversion intact sensation. There is a knee immobilizer in place. 1+ leg edema and intact sensation. DP and PT pulses are 1+ palpable. Results & Data Vital Signs (Past 12 Hours) Vital Signs Temp Pulse Resp BP Pulse Ox O2 Del Method 07/18/23 07:20 Room Air 07/18/23 06:56 36.7 C 87 16 144/80 H 92 Room Air Laboratory Results Laboratory Results WBC 5.32 K/ul (4.8-10.8) 07/18/23 07:37 RBC 3.73 M/uL (4.20-5.40) L 07/18/23 07:37 Hgb 9.6 g/dl (12.0-16.0) L 07/18/23 07:37 Hct 31.1 % (37.0-47.0) L 07/18/23 07:37 MCV 83.4 fL (80.0-100.0) 07/18/23 07:37 MCH 25.7 pg (25.0-34.0) 07/18/23 07:37 MCHC 30.9 g/dL (32.0-36.0) L 07/18/23 07:37 RDW Std Deviation 49.6 fL (36.4-46.3) H 07/18/23 07:37 RDW Coeff of Rosette 16.4 % (11.5-14.5) H 07/18/23 07:37 Plt Count 309 K/uL (130-400) 07/18/23 07:37 MPV 9.5 fL (9.4-12.4) 07/18/23 07:37 Immature Gran % (Auto) 0.2 % 07/18/23 07:37 Neut % (Auto) 47.9 % 07/18/23 07:37 Lymph % (Auto) 24.8 % 07/18/23 07:37 Sevier % (Auto) 8.6 % 07/18/23 07:37 Eos % (Auto) 17.7 % 07/18/23 07:37 Baso % (Auto) 0.8 % 07/18/23 07:37 Neut # (Auto) 2.55 K/uL (1.40-6.50) 07/18/23 07:37 Lymph # (Auto) 1.32 K/uL (1.20-3.40) 07/18/23 07:37 Sevier # (Auto) 0.46 K/uL (0.11-0.59) 07/18/23 07:37 Eos # (Auto) 0.94 K/uL (0.00-0.50) H 07/18/23 07:37 Baso # (Auto) 0.04 K/uL (0.00-0.20) 07/18/23 07:37 Immature Gran # (Auto) 0.01 K/uL (0.01-0.20) 07/18/23 07:37 PT 11.2 Seconds (9.0-12.0) 07/17/23 10:55 INR 1.0 (0.9-1.1) 07/17/23 10:55 APTT 21 Seconds (21-31) 07/17/23 10:55 PTT Ratio 0.8 07/17/23 10:55 Sodium 138 mmol/L (136-145) 07/18/23 07:37 Potassium 3.6 mmol/L (3.5-5.1) 07/18/23 07:37 Chloride 105 mmol/L (98-107) 07/18/23 07:37 Carbon Dioxide 29 mmol/L (21-32) 07/18/23 07:37 Anion Gap 4 (3-11) 07/18/23 07:37 BUN 10 mg/dl (6-23) 07/18/23 07:37 Creatinine 0.59 mg/dl (0.6-1.2) L 07/18/23 07:37 Est Cr Clr Drug Dosing 98.4 ml/min 07/18/23 07:37 Est GFR ( Amer) 106.1 ml/min 07/18/23 07:37 Est GFR (Non-Af Amer) 91.6 ml/min 07/18/23 07:37 BUN/Creatinine Ratio 16.9 (10-20) 07/18/23 07:37 Glucose 95 mg/dl (70-99(Fasting)) 07/18/23 07:37 Calcium 8.6 mg/dl (8.6-10.3) 07/18/23 07:37 Magnesium 1.8 mg/dl (1.7-2.4) 07/17/23 17:04 Blood Type A Positive 07/17/23 11:00 Antibody Screen NEGATIVE 07/17/23 11:00 Impressions Pelvis X-Ray 07/17/23 11:32 SINGLE VIEW PELVIS CLINICAL HISTORY: Postreduction examination. FINDINGS: An AP, portable, supine pelvic radiograph is compared to study performed earlier the same day 07/17/2023. The skeletal structures are osteopenic. No fracture is seen. There has been successful reduction of the dislocated left hip arthroplasty with pentecostalism of near-anatomic alignment. Mild overlying soft tissue edema is noted. Moderate to severe osteoarthritic change is seen in the right hip. Degenerative sclerosis is noted in the sacroiliac joints and pubic symphysis. There is atherosclerotic calcification of the femoral arteries. IMPRESSION: 1. There has been successful. Reduction of the dislocated left hip arthroplasty with pentecostalism of near-anatomic alignment. 2. No fracture is seen. Electronically signed by: Phill Davila M.D. 07/17/2023 12:07 PM Hip X-Ray 07/17/23 14:55 LEFT HIP 2 VIEWS CLINICAL HISTORY: Left hip pain. FINDINGS: AP and crosstable lateral views of the left hip are compared to st udies performed earlier the same day 07/17/2023. The skeletal structures are osteopenic. A bipolar left hip arthroplasty is in near anatomic alignment. No periprosthetic lucency is seen. There is no radiographic evidence of acute fracture involving the left hip or the visualized left hemipelvis. Mild overlying soft tissue edema is noted. There atherosclerotic calcification of the left femoral artery. IMPRESSION: 1. No acute fracture is identified. 2. A left hip arthroplasty is in near anatomic alignment. Electronically signed by: Phill Davila M.D. 07/17/2023 3:47 PM Diagnostic Findings Her white count is normal. Hemoglobin is 9.6. X-rays in the ER demonstrated dislocation. AP pelvis AP lateral views done subsequently show a total hip arthroplasty with a concentric reduction and no evidence of fracture.
[2023-07-18] MEDS: ASPIRIN 325 MG ECTAB PO SCH (10:44)
--- NOTE | 2023-07-18 16:40 | Hospitalist Progress Note ---
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 Appreciate orthopedic consultation and recommendations. Abduction brace is in place. She states however, that she cannot return to her son's home with the brace in place. OT and PT assessments have been requested and are pending. Prior left hip dislocation on 06/18 (2) History of left hip replacement: Plan: Left hip replacement in January 2023 in [place], and subsequent fall/revision left total hip arthroplasty in April 2023 (both in [place]) (3) Hypokalemia: Plan: Corrected to 3.6. Serial labs (4) Leg swelling: Plan: Patient began taking Lasix 10 mg p.o. as needed for her lower extremity swelling. No prior history of CHF. No evidence of CHF on chest x-ray (5) History of staphylococcal infection: Plan: History of PICC line infection with staph organism. She is on oral doxycycline BID (chronic suppressive therapy) Plan She states she cannot return to her son's home with the left leg brace in place. OT and PT assessments pending. SNF or IPR placement appears to be the only option for her Admission and Anticipated Discharge Date Admission Date: July 17, 2023 Subjective Alert and oriented. No distress. Orthopedic consultation appreciated. A left hip abduction brace has been ordered. However, she states she cannot return to her son's home where she lives due to the presence of the leg brace for what ever reason. OT and PT assessments have been requested. IPR or SNF placement appears to be the only option. Potassium has been corrected to 3.6. She remains on room air. Review of Systems 2 Review of Systems: Constitutional-no fever or chills ENT-no blurred vision, no double vision, no epistaxis, no sore throat Respiratory-no cough, no wheezing, no shortness of breath Cardiac-no palpitations, no chest pain, no syncope GI-no nausea, vomiting, diarrhea, melena, hematochezia -no urinary retention, no urinary incontinence, no dysuria, no hematuria Musculoskeletal-left leg in abduction brace Skin-no bruising, no rashes, no pruritus Neuro-no isolated weakness, no paresthesia, no weakness Psych-no depression, no anxiety Physical Exam 2 Physical Exam: General-alert and oriented x3, no fever, no chills HEENT-head atraumatic and normocephalic, pupils equal and reactive to light, extraocular muscles intact Neck-no lymphadenopathy or thyromegaly, trachea midline Chest-clear to auscultation. No rales, wheezing or rhonchi Cardiac-regular rate and rhythm, normal S1 and S2 Abdomen-normal bowel sounds, no hepatosplenomegaly Extremities-left leg in an abduction brace Neuro-cranial nerves II through XII intact, motor and sensory function within normal limits, strength symmetrical, no focal deficits Psych-normal affect, normal mood Results & Data Results & Data Vital Signs (Past 12 Hours) Vital Signs Temp Pulse Resp BP Pulse Ox O2 Del Method 07/18/23 14:05 36.6 C 85 16 151/91 H 95 Room Air 07/18/23 07:20 Room Air 07/18/23 06:56 36.7 C 87 16 144/80 H 92 Room Air Laboratory Results 07/18/23 07:37 07/18/23 07:37 PG Care Time/CCT Total # of Minutes Spent Total Time Spent with Patient: Total time spent is greater than 50% in coordination of care (as documented) at patient's floor/unit and/or counseling patient: Coding Level of Care Code 84267 SUB INP/OBS CARE 3/50MIN Diagnoses Hip dislocation, left S73.005A History of left hip replacement Z96.642 Hypokalemia E87.6 Leg swelling M79.89 History of staphylococcal infection Z86.19
[2023-07-19 05:54] LABS: Basophils # (auto) 0.02 K/uL (0.00-0.20); Basophils % (auto) 0.4 %; Eosinophils # (auto) 1.06 K/uL (0.00-0.50); Eosinophils % (auto) 19.8 %; Hematocrit (blood only) 30.6 % (37.0-47.0); Hemoglobin 9.5 g/dl (12.0-16.0); Immature Granulocytes # (auto) 0.01 K/uL (0.01-0.20); Immature Granulocytes % (auto) 0.2 %; Lymphocytes # (auto) 1.55 K/uL (1.20-3.40); Mean Corpuscular Hemoglobin 25.7 pg (25.0-34.0); Mean Corpuscular Volume 82.7 fL (80.0-100.0); Mean Platelet Volume 9.6 fL (9.4-12.4); Monocytes % (auto) 9.3 %; Neutrophils # (auto) 2.21 K/uL (1.40-6.50); Neutrophils % (auto) 41.3 %; Platelet Count 285 K/uL (130-400); RDW Coefficient of Variation 16.2 % (11.5-14.5); RDW Standard Deviation 49.1 fL (36.4-46.3); White Blood Count 5.35 K/ul (4.8-10.8)
[2023-07-19 06:08] LABS: BUN Creatinine Ratio 14.5 (10-20); Calcium 8.7 mg/dl (8.6-10.3); Creatinine Clr Calc Pharmacy 84.2 ml/min; Est GFR (African American) 100.8 ml/min; Potassium 3.8 mmol/L (3.5-5.1)
--- NOTE | 2023-07-19 11:10 | Orthopedic Progress Note ---
Date of Service July 19, 2023 Assessment & Plan (1) Prosthetic hip infection: (2) S/P closed reduction of dislocated total hip prosthesis: Plan: Patient understands the complexity of her hip situation. We have ordered a hip abduction brace to be placed later today. Once that is in place she can be discharged to home or inpatient rehab facility. She can be out of bed with a knee immobilizer and weightbearing as tolerated with a walker until the hip brace is obtained. Continue physical therapy and Occupational Therapy as ordered. Continue the aspirin for DVT prophylaxis. She would like referral to either [place] or [place]. We will place a referral for her she and get an outpatient appointment for her. When she is medically stable and hip brace is obtained she can be discharged from an orthopedic standpoint. Patient understands and agrees to plan. (3) History of left hip replacement: (4) Hip dislocation, left: Admission and Anticipated Discharge Date Admission Date: July 17, 2023 Subjective Patient is sitting up in a chair today. She is nervous about moving the hip. She states she is very fearful of having it dislocate again. She does not have any significant pain. She feels that she will do better once she gets the hip brace applied. She is ambulating with a walker. She has had physical therapy and Occupational Therapy and states they recommended inpatient rehab. She states a referral is being placed to [facility]. Physical Exam Musculoskeletal: Exam of left leg: Without edema. Tolerates gentle active range of motion without increased discomfort. Results & Data Vital Signs (Past 12 Hours) Vital Signs Temp Pulse Resp BP Pulse Ox O2 Del Method 07/19/23 07:00 36.4 C L 84 16 150/84 H 92 Room Air
--- NOTE | 2023-07-19 12:38 | Hospitalist Progress Note ---
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 Appreciate orthopedic consultation and recommendations. Abduction brace will be placed today, July 18. OT and PT assessments have been requested and will determine final disposition. She prefers to go to [facility]. Case management aware. Prior left hip dislocation on 06/18 (2) History of left hip replacement: Plan: Left hip replacement in January 2023 in [place], and subsequent fall/revision left total hip arthroplasty in April 2023 (both in [place]) (3) Hypokalemia: Plan: Corrected to 3.8. Serial labs (4) Leg swelling: Plan: Patient began taking Lasix 10 mg p.o. as needed for her lower extremity swelling. No prior history of CHF. No evidence of CHF on chest x-ray (5) History of staphylococcal infection: Plan: History of PICC line infection with staph organism. She is on oral doxycycline BID (chronic suppressive therapy) Plan To be determined by OT and PT results. She prefers to go to [facility] for rehab. Admission and Anticipated Discharge Date Admission Date: July 17, 2023 Subjective Alert and oriented. No distress. Case discussed with orthopedic surgery. Apparently, the left leg abduction brace will be placed today, July 18. I was under the impression that it had already been done but I was wrong. PT and OT assessments requested. This will determine whether she can go home or not. She prefers to go to [facility]. Torres catheter will be removed today, July 18. This was placed on admission in the ED. Review of Systems 2 Review of Systems: Constitutional-no fever or chills ENT-no blurred vision, no double vision, no epistaxis, no sore throat Respiratory-no cough, no wheezing, no shortness of breath Cardiac-no palpitations, no chest pain, no syncope GI-no nausea, vomiting, diarrhea, melena, hematochezia -no urinary retention, no urinary incontinence, no dysuria, no hematuria Musculoskeletal-left leg currently immobilized Skin-no bruising, no rashes, no pruritus Neuro-no isolated weakness, no paresthesia, no weakness Psych-no depression, no anxiety Physical Exam 2 Physical Exam: General-alert and oriented x3, no fever, no chills HEENT-head atraumatic and normocephalic, pupils equal and reactive to light, extraocular muscles intact Neck-no lymphadenopathy or thyromegaly, trachea midline Chest-clear to auscultation. No rales, wheezing or rhonchi Cardiac-regular rate and rhythm, normal S1 and S2 Abdomen-normal bowel sounds, no hepatosplenomegaly Extremities-left leg has been immobilized Neuro-cranial nerves II through XII intact, motor and sensory function within normal limits, strength symmetrical, no focal deficits Psych-normal affect, normal mood Results & Data Results & Data Vital Signs (Past 12 Hours) Vital Signs Temp Pulse Resp BP Pulse Ox O2 Del Method 07/19/23 07:00 36.4 C L 84 16 150/84 H 92 Room Air Laboratory Results 07/19/23 05:19 07/19/23 05:19 PG Care Time/CCT Total # of Minutes Spent Total Time Spent with Patient: Total time spent is greater than 50% in coordination of care (as documented) at patient's floor/unit and/or counseling patient: Coding Level of Care Code 48567 SUB INP/OBS CARE 3/50MIN Diagnoses Hip dislocation, left S73.005A History of left hip replacement Z96.642 Hypokalemia E87.6 Leg swelling M79.89 History of staphylococcal infection Z86.19
[2023-07-20 06:18] LABS: Basophils # (auto) 0.02 K/uL (0.00-0.20); Basophils % (auto) 0.3 %; Eosinophils # (auto) 0.94 K/uL (0.00-0.50); Eosinophils % (auto) 13.7 %; Hematocrit (blood only) 32.1 % (37.0-47.0); Immature Granulocytes # (auto) 0.02 K/uL (0.01-0.20); Immature Granulocytes % (auto) 0.3 %; Lymphocytes # (auto) 1.08 K/uL (1.20-3.40); Lymphocytes % (auto) 15.7 %; Mean Corpuscular Hemoglobin 25.4 pg (25.0-34.0); Mean Corpuscular Hgb Conc 31.2 g/dL (32.0-36.0); Mean Corpuscular Volume 81.7 fL (80.0-100.0); Mean Platelet Volume 9.5 fL (9.4-12.4); Monocytes # (auto) 0.65 K/uL (0.11-0.59); Monocytes % (auto) 9.5 %; Neutrophils # (auto) 4.15 K/uL (1.40-6.50); Neutrophils % (auto) 60.5 %; Platelet Count 303 K/uL (130-400); RDW Coefficient of Variation 16.5 % (11.5-14.5); RDW Standard Deviation 49.2 fL (36.4-46.3); Red Blood Count 3.93 M/uL (4.20-5.40); White Blood Count 6.86 K/ul (4.8-10.8)
[2023-07-20 06:39] LABS: BUN Creatinine Ratio 18.2 (10-20); Calcium 9.1 mg/dl (8.6-10.3); Est GFR (African American) 102.3 ml/min; Est GFR (Non-African American) 88.3 ml/min; Potassium 3.8 mmol/L (3.5-5.1)
--- NOTE | 2023-07-20 13:56 | Hospitalist Progress Note ---
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 Appreciate orthopedic consultation and recommendations. Abduction brace is now in place. Continue OT and PT while hospitalized. Referral to [facility] has been made by case management. Prior left hip dislocation on 06/18 (2) History of left hip replacement: Plan: Left hip replacement in January 2023 in [place], and subsequent fall/revision left total hip arthroplasty in April 2023 (both in [place]) (3) Hypokalemia: Plan: Corrected. Serial labs (4) Leg swelling: Plan: Patient began taking Lasix 10 mg p.o. as needed for her lower extremity swelling. No prior history of CHF. No evidence of CHF on chest x-ray (5) History of staphylococcal infection: Plan: History of PICC line infection with staph organism. She is on oral doxycycline BID (chronic suppressive therapy) Plan Hopeful discharge to [facility] if approved. Otherwise, she will go home with home health services Admission and Anticipated Discharge Date Admission Date: July 17, 2023 Subjective Alert and oriented. She now has the left hip abduction brace in place. Placement at [facility] is pending. Torres catheter was removed yesterday, July 18, without incident. She has developed what appears to be a viral URI which will be treated conservatively. Review of Systems 2 Review of Systems: Constitutional-no fever or chills ENT-no blurred vision, no double vision, no epistaxis, no sore throat Respiratory-no cough, no wheezing, no shortness of breath Cardiac-no palpitations, no chest pain, no syncope GI-no nausea, vomiting, diarrhea, melena, hematochezia -no urinary retention, no urinary incontinence, no dysuria, no hematuria Musculoskeletal-left leg currently immobilized Skin-no bruising, no rashes, no pruritus Neuro-no isolated weakness, no paresthesia, no weakness Psych-no depression, no anxiety Physical Exam 2 Physical Exam: General-alert and oriented x3, no fever, no chills HEENT-head atraumatic and normocephalic, pupils equal and reactive to light, extraocular muscles intact Neck-no lymphadenopathy or thyromegaly, trachea midline Chest-clear to auscultation. No rales, wheezing or rhonchi Cardiac-regular rate and rhythm, normal S1 and S2 Abdomen-normal bowel sounds, no hepatosplenomegaly Extremities-left leg has been immobilized Neuro-cranial nerves II through XII intact, motor and sensory function within normal limits, strength symmetrical, no focal deficits Psych-normal affect, normal mood Results & Data Results & Data Vital Signs (Past 12 Hours) Vital Signs Temp Pulse Resp BP Pulse Ox O2 Del Method 07/20/23 08:59 Room Air 07/20/23 07:12 36.4 C L 92 H 16 122/75 96 Room Air Laboratory Results 07/20/23 05:39 07/20/23 05:39 PG Care Time/CCT Total # of Minutes Spent Total Time Spent with Patient: Total time spent is greater than 50% in coordination of care (as documented) at patient's floor/unit and/or counseling patient: Coding Level of Care Code 55224 SUB INP/OBS CARE 3/50MIN Diagnoses Hip dislocation, left S73.005A History of left hip replacement Z96.642 Hypokalemia E87.6 Leg swelling M79.89 History of staphylococcal infection Z86.19
[2023-07-20] MEDS: ONDANSETRON INJ 2 MG/ML 2 ML VIAL IV PRN (17:36)
[2023-07-20] MEDS: KETOROLAC TROMETHAMINE 15 MG/ML VIAL IV ONE (23:42)
[2023-07-21] MEDS: ACETAMINOPHEN 500 MG TAB PO SCH (05:43)
[2023-07-21] MEDS: FLUTICASONE PROPIONATE NA SPR 16 GM BTL SCH (05:43)
--- NOTE | 2023-07-21 09:30 | Orthopedic Progress Note ---
Date of Service July 21, 2023 Assessment & Plan (1) Prosthetic hip infection: (2) S/P closed reduction of dislocated total hip prosthesis: Plan: Patient has a hip brace in place. She is relatively comfortable on this. She states that it bothers her right hip occasionally with rubbing. She can adjust it just to come and take the pressure off a little bit. Advised that she needs to keep this on at all times. She does understand this. She is awaiting letty cement which could potentially happen tomorrow the next day. Continue aspirin for DVT prophylaxis. We are going to place a referral for her she and I advised her that she could be getting some calls from our [place] office to schedule an appointment. She does have follow-up scheduled with Dr. Buckley next week. I explained to her that the facility she will be at will transport [facility]. She understands and agrees with the plan and is stable for discharge from an orthopedic standpoint. (3) History of left hip replacement: (4) Hip dislocation, left: Admission and Anticipated Discharge Date Admission Date: July 17, 2023 Subjective Patient resting in bed. No complaints of pain. Did have some issues with the abduction brace rubbing on her right hip. Apparently was adjusted by the hydraulic specialist yesterday. She states it feels a little bit better. She is awaiting placement and feels that she does need rehab to "get stronger". Physical Exam Musculoskeletal: Exam of her left leg: Distal neurovascular function is normal. No edema. Tolerates full range of motion of the left ankle and knee. Hip abduction brace is in place. Results & Data Vital Signs (Past 12 Hours) Vital Signs Temp Pulse Resp BP Pulse Ox O2 Del Method 07/21/23 07:34 36.5 C 84 18 115/73 96 Room Air 07/20/23 23:45 Room Air
--- NOTE | 2023-07-21 13:29 | Hospitalist Progress Note ---
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 Appreciate orthopedic consultation and recommendations. Abduction brace is now in place. Continue OT and PT while hospitalized. Will discuss peer to peer this afternoon with insurance to determine if she can go to IPR. If not, she is interested in pursuing SNF placement. Prior left hip dislocation on 06/18 (2) History of left hip replacement: Plan: Left hip replacement in January 2023 in [place], and subsequent fall/revision left total hip arthroplasty in April 2023 (both in [place]) (3) Hypokalemia: Plan: Corrected. Serial labs (4) Leg swelling: Plan: Patient began taking Lasix 10 mg p.o. as needed for her lower extremity swelling. No prior history of CHF. 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 If IPR is denied, she is interested in pursuing SNF placement. She is medically stable for discharge. Admission and Anticipated Discharge Date Admission Date: July 17, 2023 Subjective Alert and oriented. No distress. Will discuss with insurance company peer to peer phone call this afternoon. If they deny IPR placement, she is interested in pursuing SNF. She does not want to go home. Both PT and OT recommend inpatient rehab. Left hip abductor brace is now in place. Review of Systems 2 Review of Systems: Constitutional-no fever or chills ENT-no blurred vision, no double vision, no epistaxis, no sore throat Respiratory-no cough, no wheezing, no shortness of breath Cardiac-no palpitations, no chest pain, no syncope GI-no nausea, vomiting, diarrhea, melena, hematochezia -no urinary retention, no urinary incontinence, no dysuria, no hematuria Musculoskeletal-left leg abductor brace is in place Skin-no bruising, no rashes, no pruritus Neuro-no isolated weakness, no paresthesia, no weakness Psych-no depression, no anxiety Physical Exam 2 Physical Exam: General-alert and oriented x3, no fever, no chills HEENT-head atraumatic and normocephalic, pupils equal and reactive to light, extraocular muscles intact Neck-no lymphadenopathy or thyromegaly, trachea midline Chest-clear to auscultation. No rales, wheezing or rhonchi Cardiac-regular rate and rhythm, normal S1 and S2 Abdomen-normal bowel sounds, no hepatosplenomegaly Extremities-left leg abductor brace is in place Neuro-cranial nerves II through XII intact, motor and sensory function within normal limits, strength symmetrical, no focal deficits Psych-normal affect, normal mood Results & Data Results & Data Vital Signs (Past 12 Hours) Vital Signs Temp Pulse Resp BP Pulse Ox O2 Del Method 07/21/23 07:50 Room Air 07/21/23 07:34 36.5 C 84 18 115/73 96 Room Air Laboratory Results 07/20/23 05:39 07/20/23 05:39 PG Care Time/CCT Total # of Minutes Spent Total Time Spent with Patient: Total time spent is greater than 50% in coordination of care (as documented) at patient's floor/unit and/or counseling patient: Coding Level of Care Code 11855 SUB INP/OBS CARE 3/50MIN Diagnoses Hip dislocation, left S73.005A History of left hip replacement Z96.642 Hypokalemia E87.6 Leg swelling M79.89 History of staphylococcal infection Z86.19
[2023-07-21 15:43] VITALS: RESP 16
--- NOTE | 2023-07-22 11:58 | Hospitalist Progress Note ---
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 Appreciate orthopedic consultation and recommendations. Abduction brace is now in place. Continue OT and PT while hospitalized. Insurance has denied IPR placement. Awaiting SNF approval. Prior left hip dislocation on 06/18 (2) History of left hip replacement: Plan: Left hip replacement in January 2023 in [place], and subsequent fall/revision left total hip arthroplasty in April 2023 (both in [place]) (3) Hypokalemia: Plan: Corrected. Serial labs (4) Leg swelling: Plan: Patient began taking Lasix 10 mg p.o. as needed for her lower extremity swelling. No prior history of CHF. No evidence of CHF on chest x-ray (5) History of staphylococcal infection: Plan: History of PICC line infection with staph organism. She is on oral doxycycline BID (chronic suppressive therapy) (6) Viral URI: Plan: Supportive care Plan Eventual discharge to [facility] when insurance authorization is obtained . Medically stable Admission and Anticipated Discharge Date Admission Date: July 17, 2023 Subjective Alert and oriented. Afebrile. Continued upper respiratory congestion from suspected viral URI. Awaiting insurance approval for discharge to [facility]. The patient inquired about self-pay for [facility] health placement. This is a question for case management Review of Systems 2 Review of Systems: Constitutional-no fever or chills ENT-no blurred vision, no double vision, no epistaxis, no sore throat Respiratory-no cough, no wheezing, no shortness of breath Cardiac-no palpitations, no chest pain, no syncope GI-no nausea, vomiting, diarrhea, melena, hematochezia -no urinary retention, no urinary incontinence, no dysuria, no hematuria Musculoskeletal-left leg abductor brace is in place Skin-no bruising, no rashes, no pruritus Neuro-no isolated weakness, no paresthesia, no weakness Psych-no depression, no anxiety Physical Exam 2 Physical Exam: General-alert and oriented x3, no fever, no chills HEENT-head atraumatic and normocephalic, pupils equal and reactive to light, extraocular muscles intact Neck-no lymphadenopathy or thyromegaly, trachea midline Chest-clear to auscultation. No rales, wheezing or rhonchi Cardiac-regular rate and rhythm, normal S1 and S2 Abdomen-normal bowel sounds, no hepatosplenomegaly Extremities-left leg abductor brace is in place Neuro-cranial nerves II through XII intact, motor and sensory function within normal limits, strength symmetrical, no focal deficits Psych-normal affect, normal mood Results & Data Results & Data Vital Signs (Past 12 Hours) Vital Signs Temp Pulse Resp BP Pulse Ox O2 Del Method 07/22/23 07:30 Room Air 07/22/23 07:23 36.9 C 89 16 119/69 92 Room Air Laboratory Results 07/20/23 05:39 07/20/23 05:39 PG Care Time/CCT Total # of Minutes Spent Total Time Spent with Patient: Total time spent is greater than 50% in coordination of care (as documented) at patient's floor/unit and/or counseling patient: Coding Level of Care Code 65378 SUB INP/OBS CARE 2/35MIN Diagnoses Hip dislocation, left S73.005A History of left hip replacement Z96.642 Hypokalemia E87.6 Leg swelling M79.89 History of staphylococcal infection Z86.19 Viral URI J06.9
--- NOTE | 2023-07-22 15:20 | Discharge Summary ---
Date of Service July 22, 2023 Admission HPI Per Admitting Provider Janay is a pleasant 73-year-old female with PMH of left total hip replacement, falls, ambulatory dysfunction, and seizures. She presented on 07/16 after sitting in a chair and feeling her left hip "pop". No syncope, no LOC, no fall. She reports that she sat down in her chair, and bent over/twisted her leg from left to right (internal rotation) and suddenly heard a pop with severe left hip pain. Patient had the hip reduced in the ED, and is currently left hip pain-free. Recent hip replacement in January 2023, with a fall in April 2023 requiring additional surgery. Patient recently moved in with her son in the beginning of June; was previously living in [place]. She has had 2 hip dislocations since, with the last being on Sunday 06/18, and then again today on 07/16. Patient ambulates with a walker/cane at baseline, but reports she has not been using it recently. She denies any recent falls since April. Patient did take her morning medications, including her doxycycline which she takes chronically for suppressive therapy following a PICC line/staph infection. The only medication she did not take this morning was her "water pill". She does note she is had increased leg swelling recently; no PMH of CHF to her knowledge; she was scheduled for an echocardiogram this upcoming Wednesday on 07/22. Patient also notes she has a history of seizures, but is not currently on medications for this; son reports that she will stare off into blank space; no LOC when this happens. Patient's SpO2 was 100% on nonrebreather 15 L. ED course: Morphine sulfate 4 mg IV Propofol 200 mg IV Ketamine 85 mg IV Zofran 4 mg IV Fentanyl 100 mcg IV ROS: Patient endorses left hip pain, lightheadedness with walking, feeling off balance, ambulatory dysfunction, FERNÁNDEZ, and orthopnea. Patient denies fever, chills, night sweats, new body aches, headache, chest pain, SOB at rest, chest palpitations, pleuritic CP, cough, abdominal pain, or N/V/D. Principal Diagnosis Recurrent dislocation of left hip arthroplasty, hypokalemia, viral URI Discharge Exam General-alert and oriented x3, no fever, no chills HEENT-head atraumatic and normocephalic, pupils equal and reactive to light, extraocular muscles intact Neck-no lymphadenopathy or thyromegaly, trachea midline Chest-clear to auscultation. No rales, wheezing or rhonchi Cardiac-regular rate and rhythm, normal S1 and S2 Abdomen-normal bowel sounds, no hepatosplenomegaly Extremities-left leg abductor brace is in place Neuro-cranial nerves II through XII intact, motor and sensory function within normal limits, strength symmetrical, no focal deficits Psych-normal affect, normal mood Discharge Data Allergies Allergy/AdvReac Type Severity Reaction Status Date / Time No Known Allergies Allergy Unverified 07/17/23 12:22 Consultations 07/17/23 12:13 Consult Orthopedic Surgery Stat ED Decision to Admit Stat 07/18/23 08:45 Consult Orthopedic Surgery Routine Hospital Course (1) Hip dislocation, left: 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 Appreciate orthopedic consultation and recommendations. Abduction brace is now in place. Continue OT and PT while hospitalized. Insurance has denied IPR and SNF. Prior left hip dislocation on 06/18 (2) History of left hip replacement: Left hip replacement in January 2023 in [place], and subsequent fall/revision left total hip arthroplasty in April 2023 (both in [place]) (3) Hypokalemia: Corrected. Serial labs (4) Leg swelling: Patient began taking Lasix 10 mg p.o. as needed for her lower extremity swelling. No prior history of CHF. No evidence of CHF on chest x-ray (5) History of staphylococcal infection: History of PICC line infection with staph organism. She is on oral doxycycline BID (chronic suppressive therapy) (6) Viral URI: Supportive care Plan Home with home health services. She will have to pursue outpatient physical therapy Total Time Total Time Spent Total Time Spent (In Minutes): 45 minutes Discharge Plan Discharge Items Patient Disposition: Home - Home Health Services Reason For Visit: LEFT HIP INJURY/ PAIN Discharge Diagnosis: Recurrent dislocation left total hip arthroplasty, viral URI, hypokalemia Activity: Resume your previous activity Weightbearing: Full weightbearing Weightbearing Comment: with hip abduction brace Non-emergency contact: Surgeon Call non-emergency contact if: your symptoms worsen and your pain is not controlled Follow-up/Referrals: Mikie Buckley MD [Surgeon] - 07/28/23 11:30 am Ricotta,Dao J., PA-C [Primary Care Provider] - Diet: Regular Addtl Attending Provider Instructions: Where left hip abductor brace as recommended by orthopedic surgery. Follow-up with Dr. Mikie Buckley, orthopedics, in the office in 2 weeks. Addtl [employer] Provider Instructions: Orthopedic Instructions: Weight-bear as tolerated with walker. Hip abduction brace on at all times. Ice as needed for pain and swelling. Elevate lower extremity as needed for pain and swelling. MADHURI stockings on bilateral lower extremities as needed for swelling. Hip precautions at all times. Continue antibiotics. Aspirin 325 mg p.o. twice daily for DVT prophylaxis. Pain medication as prescribed or as needed. Follow-up with Dr. Buckley as scheduled for follow-up right hip and possible referral to revision specialist. Call [phone] with any increased pain, swelling, questions or concerns, need to reschedule or confirm appointment. - Pending Studies at Discharge: No Stand-Alone Forms: [facility], Smoking Cessation Medications and DC Order Prescriptions: Continued gabapentin 600 mg tablet 600 mg PO DAILY famotidine 40 mg tablet 40 mg PO DAILY gabapentin 400 mg capsule 400 mg PO DAILY trazodone 100 mg tablet 200 mg PO HS doxycycline monohydrate 100 mg capsule 100 mg PO BID furosemide 20 mg tablet 20 mg PO DAILY PRN (Reason: Edema) cetirizine 10 mg Tablet 10 mg PO DAILY Discharge Orders: Discharge Order (Routine); Ordered 07/22/23 Ordered By: Giuseppe Fofana Admission Data Admit Date/Time: 07/17/23 12:39 Attending Provider: Giuseppe Fofana Admit Provider: Mikie Garrett Primary Care Provider: Dao Jefferson Other Providers: Mikie Buckley; Mikie Garrett; Kvng Martinez; Tiara Ortiz; Kita Lujan; Dandre Seals; Fabby Borjas; Ankit Granda; Allison Forrester; Obey Varma; Faheem Winslow; Renetta Medeiros; Faheem Kahn; Viktor Bravo; [facility] Coding Level of Care Code 03437 INP/OBS DISCH >30 MIN Diagnoses Hip dislocation, left S73.005A History of left hip replacement Z96.642 Hypokalemia E87.6 Leg swelling M79.89 History of staphylococcal infection Z86.19 Viral URI J06.9
[2023-07-22 15:44] VITALS: BP 150/78; PULSE 99; TEMP 98.1; O2SAT 94
== END 2023-07-22 19:44 | disposition home health service (06) | DRG 561 ==
LOC: ED 10:33 → EDINP 12:39 → SUATTDRO 12:39 → INTOOBSV 12:39 → 3E 14:30

== ENCOUNTER 2024-06-01 13:25 | Observation (INO) ==
--- NOTE | 2024-06-01 13:41 | Emergency Department Note ---
ED Provider Note History of Present Illness Chief Complaint: Hip Pain Stated Complaint: hip pain Time Seen by Provider: 06/01/24 13:30 Source: patient Mode of arrival: ambulatory Limitations: no limitations Patient is a 73-year-old female who presents to the emergency department with complaints of left hip pain. Patient states that Wednesday she was sitting in her recliner when she started having some pain in her left hip. Patient was able to stand and ambulate into her bedroom to lie down but felt that she was weaker in the left hip. Patient states that she woke yesterday having the same pain and contacted her primary care physician. Patient states that she was seen by her primary care physician and told that she was having muscular pain, however there is no imaging done. Patient states that she has a significant history of dislocating her hip and is concerned that that may have happened. However the patient does note that she was able to ambulate today with some increased pain. Patient denies any numbness or tingling. Patient does not appear to have any notable weakness in that left leg. Patient denies any recent injuries. Home Medications Medication Instructions Recorded Confirmed Type cetirizine 10 mg tablet 10 mg PO DAILY 07/17/23 06/01/24 History doxycycline monohydrate 100 mg 100 mg PO DAILY 07/17/23 06/01/24 History capsule famotidine 40 mg tablet 40 mg PO DAILY 07/17/23 06/01/24 History furosemide 20 mg tablet 20 mg PO DAILY PRN Edema 07/17/23 06/01/24 History gabapentin 400 mg capsule 400 mg PO UD 07/17/23 06/01/24 History gabapentin 600 mg tablet 600 mg PO DAILY 07/17/23 06/01/24 History trazodone 100 mg tablet 200 mg PO HS 07/17/23 06/01/24 History B Complex 1 tab PO QAM 06/01/24 06/01/24 History Probiotic 1 cap PO DAILY 06/01/24 06/01/24 History Vitamin D3 1 cap PO QAM 06/01/24 06/01/24 History acetaminophen 500 mg tablet 1,500 mg PO BID 06/01/24 06/01/24 History multivitamin 1 tab PO QAM 06/01/24 06/01/24 History potassium chloride 10 mEq 10 meq PO DIRECTED PRN take 06/01/24 06/01/24 History tablet,extended release with fluid pill tramadol 50 mg tablet 50 mg PO DIRECTED PRN Pain 06/01/24 06/01/24 History vitamin E 1 cap PO QAM 06/01/24 06/01/24 History Allergies Allergy/AdvReac Type Severity Reaction Status Date / Time No Known Allergies Allergy Unverified 07/17/23 12:22 Past Med/Surg History Problem List (Updated 06/01/24 @ 17:32 by PJ Rabago) Hip pain (Acute) Hypokalemia Hip dislocation, left Medical History History of staphylococcal infection Ambulatory dysfunction Leg swelling Surgical History History of left hip replacement S/P hip replacement Social History Smoking Status: Former smoker Tobacco Type: Cigarettes Second Hand Exposure: No; Do You Dip or Chew Tobacco: No; Hx Alcohol Use: No Hx Substance Use: No Preferred Language: Kittitian Communication Ability: Effective Intranet Specialist Required: No Beliefs That Will Affect Care: None Current Living Situation: Family Current Living Situation Comment: With son Feels Safe at Home: Yes Assistive Devices: Cane and Walker Physical Exam Vital Signs Vital Signs - 24 hr 06/01/24 13:33 06/01/24 14:58 06/01/24 16:52 Temperature 37 C Temperature Source Oral Pulse Rate 88 Pulse Rate [Finger] 81 96 H Pulse Rhythm Regular Pulse Rhythm [Finger] Regular Pulse Strength Normal Pulse Strength [Finger] Normal Respiratory Rate 20 20 17 Respiratory Effort / Characteristics Non-Labored Spontaneous Non-Labored Spontaneous Respiratory Depth Normal Normal Blood Pressure 175/91 H Blood Pressure [Right Arm] 152/113 H Blood Pressure Mean 119 Blood Pressure Mean [Right Arm] 126 Pulse Oximetry 99 97 98 Oxygen Delivery Method Room Air Room Air Room Air Sepsis Recent Fever Within 48 Hours No Sepsis New/Unexplained Change in Mental Status N/A Sepsis Action Taken by Nursing No Action Required 06/01/24 17:11 Temperature Temperature Source Pulse Rate 85 Pulse Rate [Finger] Pulse Rhythm Pulse Rhythm [Finger] Pulse Strength Pulse Strength [Finger] Respiratory Rate Respiratory Effort / Characteristics Respiratory Depth Blood Pressure Blood Pressure [Right Arm] Blood Pressure Mean Blood Pressure Mean [Right Arm] Pulse Oximetry Oxygen Delivery Method Sepsis Recent Fever Within 48 Hours Sepsis New/Unexplained Change in Mental Status Sepsis Action Taken by Nursing Physical Exam: VITAL SIGNS - Vital signs and nursing notes were reviewed. GENERAL -73-year-old female appearing her stated age and in moderate discomfort throughout the exam. Patient arrived to the emergency department via EMS. MUSCULOSKELETAL -patient has no noted erythema, edema or ecchymosis to the right hip or right lower extremity. Moderately increased tenderness to palpation appreciated over the left hip. No tenderness extending into the foot or ankle. Equal strength appreciated bilateral secondary to patient discomfort. Pt has limited AROM at affected joint due to her discomfort. NEUROLOGIC/VASCULAR - Neurovascularly intact distally with +3/5 dorsalis pedis pulses palpated bilaterally. Intact sensation to light and sharp touch appreciated distally. Course Administered Medications Discontinued Medications Oxycodone HCl (Oxycodone Hcl Ir 5 Mg Tab (Immediate Release)) 5 mg PO NOW STA Stop: 06/01/24 15:49 Last Admin: 06/01/24 15:57 Dose: 5 mg Documented By: ROVERTO Tramadol HCl (Tramadol Hcl 50 Mg Tablet) 50 mg PO NOW STA Stop: 06/01/24 13:38 Last Admin: 06/01/24 13:58 Dose: 50 mg Documented By: ANIL Medical Decision Making Differential Diagnosis Fracture, dislocation, prosthesis complication, muscular strain, sprain, ligamentous injury, among others. Medical Records Attestation: I reviewed the patient's medical records. Home Medications was personally reviewed by me Imaging Data Radiologist's Impression: Hip/Pelvis X-Ray 06/01/24 13:37 XR hip LT 2V w pelvis CLINICAL HISTORY: left hip pain COMPARISON: 10/25/2023 FINDINGS: There is an interval circular density around the lower aspect of the ball of the left hip prosthesis, likely a detached portion of the acetabular component. No other hardware complication seen. No acute fracture or dislocation. Stable severe degenerative changes at the right hip and lower lumbar spine. IMPRESSION: Interval change at the left hip prosthesis as described. No other acute findings seen. ACT 112: Negative or not required by law. Electronically signed by: Norbert Turner M.D. 06/01/2024 2:53 PM MDM Narrative Patient is a 73-year-old female who presents to the emergency department with complaints of left hip pain. Patient states that Brooke she was sitting in her recliner when she started having some pain in her left hip. Patient was able to stand and ambulate into her bedroom to lie down but felt that she was weaker in the left hip. Patient states that she woke yesterday having the same pain and contacted her primary care physician. Patient states that she was seen by her primary care physician and told that she was having muscular pain, however there is no imaging done. Patient states that she has a significant history of dislocating her hip and is concerned that that may have happened. However the patient does note that she was able to ambulate today with some increased pain. Patient denies any numbness or tingling. Patient does not appear to have any notable weakness in that left leg. Patient denies any recent injuries. Patient was evaluated by myself and findings were noted in the physical exam above. Patient was ordered an x-ray of her left hip and pelvis. Patient was also ordered a dose of tramadol for her discomfort. Patient requested that she have the tramadol and it be able to work before she has her x-ray completed. After the patient had the tramadol and it was controlling her pain the x-ray was completed. Patient's x-ray was interpreted by radiology to show a circular density around the lower aspect of the ball of her left hip prosthesis. I reached out to [facility] orthopedics to discuss these images with them. I spoke with Dr. Hartman at [facility] who was able to look at the patient's images and advised that that ring around the bottom of the ball in her prosthesis was normal as it was a little locking ring placed after the patient was having difficulty with instability. Dr. Hartman reviewed the images and noted no acute or concerning findings. He advised that the patient should contact their office to see if she can make a sooner follow-up appointment in the outpatient setting and that weightbearing as tolerated would be appropriate. I discussed Dr. Hartman's suggestions and plan with the patient who verbalized understanding. Patient states that she would prefer to go home but does not feel that she can. Patient attempted to get up at the bedside and is unable to pull herself up from a lying to a sitting position without significant pain. Patient states that she does not feel safe going home as she is concerned that she would fall and she lives at home alone. Patient verbalizes understanding that she may require physical therapy or inpatient rehab to up her strength. I reached out to case management to contact the hospitalist group for admission. [facility] and discussed the patient's case, chief complaint, current status and results of her imaging. I also discussed with Dr. Guerra that I spoke with Dr. Hartman [facility] orthoped[facility]. Dr. Guerra was concerned about admitting the patient to the hospital without [facility] knowing that the patient was still having severe pain. I reached back out to [facility] orthoped[facility] to Dr. Hartman who reiterated that he did not feel that surgical intervention would be needed in this patient's case. He advised that the chance of a periprosthetic fracture with no injury or mechanism would be quite unlikely. Dr. Hartman thought that it would be reasonable to admit the patient for pain control and PT OT consult. I spoke to Dr. Guerra again and advised him of Dr. Hartman suggestions. Dr. Guerra agreed to admit the patient under his service as long as a CT of the left hip did not show any periprosthetic fractures. Patient was ordered a CT of the hip and baseline lab work at this time. I signed this patient out to Ankit Mendoza PA-C at shift change. I gave Ankit a full report of the patient's chief complaint, current status, and the results of her imaging thus far. I discussed with Ankit the conversations that I had with Dr. Hartman and Dr. Guerra. Ankit will make Dr. Guerra aware of the results of the CT scan when they are available. Please refer to Ankit's documentation and [facility] for further evaluation and management of this patient. Impression Hip pain Discharge Plan Visit Data Chief Complaint: Hip Pain Stated Complaint: hip pain ED Provider: Phill Suarez ED Midlevel Provider: Miladis Sorto Discharge Problem: Hip pain Patient Disposition: Still a Patient Forms Stand Alone Forms: My [facility] Prescriptions Prescriptions: No Action gabapentin 600 mg tablet 600 mg PO DAILY famotidine 40 mg tablet 40 mg PO DAILY gabapentin 400 mg capsule 400 mg PO UD Rx Instructions: will start her 400 mg when she finishes the 600 mg doses. trazodone 100 mg tablet 200 mg PO HS doxycycline monohydrate 100 mg capsule 100 mg PO DAILY Rx Instructions: per pt she takes only once daily instead of twice daily furosemide 20 mg tablet 20 mg PO DAILY PRN (Reason: Edema) cetirizine 10 mg Tablet 10 mg PO DAILY B Complex 1 tab PO QAM Rx Instructions: otc unknown dose multivitamin [Multi-Vitamin] Tablet 1 tab PO QAM potassium chloride 10 mEq tablet extended release 10 meq PO DIRECTED PRN (Reason: take with fluid pill) tramadol 50 mg tablet 50 mg PO DIRECTED PRN (Reason: Pain) acetaminophen [Tylenol Ex Str Rapid Release] 500 mg Tablet 1,500 mg PO BID Probiotic 1 cap PO DAILY Rx Instructions: otc unknown dose Vitamin D3 1 cap PO QAM Rx Instructions: otc unknown dose vitamin E 1 cap PO QAM Rx Instructions: otc unknown dose Referrals Referrals: Dao Jefferson PA-C [Primary Care Provider] - Discharge Problem: Hip pain Qualifiers: Laterality: left Qualified Code(s): M25.552 - Pain in left hip
[2024-06-01] MEDS: traMADol HCL 50 MG TABLET PO STA (13:58)
--- NOTE | 2024-06-01 14:55 | XRay Report ---
XR hip LT 2V w pelvis CLINICAL HISTORY: left hip pain COMPARISON: 10/25/2023 FINDINGS: There is an interval circular density around the lower aspect of the ball of the left hip prosthesis, likely a detached portion of the acetabular component. No other hardware complication see n. No acute fracture or dislocation. Stable severe degenerative changes at the right hip and lower kathryn mbar spine. IMPRESSION: Interval change at the left hip prosthesis as described. No other acute findings seen. ACT 112: Negative or not required by law. Electronically signed by: Norbert Turner M.D. 06/01/2024 2:53 PM
[2024-06-01] MEDS: oxyCODONE HCL IR 5 MG TAB (IMMEDIATE RELEASE) PO STA (15:57)
--- NOTE | 2024-06-01 17:42 | Emergency Department Note ---
ED Visit Note Patient care was assumed from my colleague, PJ Charlton, at the time of shift change. Please see Ms. Mayen's dictation for full history of present illness and emergency department course prior to my assumption of care. The patient unfortunately is having pain in her left hip, causing difficulty with ambulation. X-rays have been performed and Ms. Sorto has discussed the case with [facility] orthopedics, as well as the [facility] hospitalist service. At time of shift change we were awaiting results of CT scan of the hip. CT scan of the hip was performed and reviewed by myself and radiology. There is not appear to be any significant new bony findings such as fracture or dislocation. The patient appears to have fluid or edema in the hip area of uncertain etiology. The patient does not have a significantly elevated white blood cell count, gross anemia, or significant electrolyte imbalance. Glucose is 108. CRP is slightly elevated within normal ESR. I did speak with both the on-call hospitalist team, as well as on-call in-house orthopedist, Dr. Davis. Dr. Davis was good enough to review the patient's case, and there does not appear to be an acute surgical finding. The patient is felt to be stable for admission to this facility for continued care and evaluation. Escalation of care is felt to be necessary as patient is essentially nonambulatory at this time. Please see the hospitalist dictation for further patient course, plan, and disposition. .
[2024-06-01 17:58] LABS: iSTAT Creatinine 0.8 mg/dl (0.6-1.3); iSTAT Hemoglobin 11.2 g/dl (12.0-16.0); iSTAT Ionized Calcium 1.12 mmol/l (1.12-1.32); iSTAT Potassium 3.9 mmol/L (3.3-5.0)
[2024-06-01] MEDS: OPTIRAY 320 100ml IV ONE (18:00)
[2024-06-01 18:15] LABS: Albumin Globulin Ratio 1.4 (0.9-2); Albumin Level 3.9 gm/dl (3.4-5.0); BUN Creatinine Ratio 14.9 (10-20); Bilirubin,Total 0.5 mg/dl (0.2-1.0); Calcium 9.2 mg/dl (8.6-10.3); Globulin 2.8 gm/dl (2.5-4.0); Potassium 3.9 mmol/L (3.5-5.1); Total Protein 6.7 gm/dl (6.0-8.3)
--- NOTE | 2024-06-01 18:38 | CT Scan Report ---
EXAMINATION: CT hip left without and with contrast CLINICAL HISTORY: Nontraumatic hip pain PRIORS: None TECHNIQUE: Contiguous axial images were obtained through the hip without and with the use of intravenous contrast. Sagittal and coronal reformations are noted. FINDINGS: A total hip arthroplasty is present with significant beam hardening artifact. Advanced osseous demineralization noted. Allowing for this, no periprosthetic fracture or lucency. A large amount of fluid present in the greater trochanteric bursa. Allowing for significant beam hardening artifact, this identified on image 93, series 9 and image 37, series 801. It measures 4.6 cm in anteroposterior dimension by 2.7 cm in transverse dimension by approximately 8.2 cm in craniocaudal dimension. On the contrast enhanced images, mild peripheral contrast enhancement is present with a thin capsule. Moderate inflammatory change present adjacent to this, within the subcutaneous tissues of the right hip, image 76, series 9. The subcutaneous tissues extend out of the [id number]. No subcutaneous gas, skin thickening or radiopaque foreign body. With the patient in supine and a drainage needle parallel to the floor, it is 3.6 cm from the skin surface to the outer edge of the bursa, 5.0 cm to the middle of the bursal fluid and 6.1 cm to the femur or posterior wall of the bursa, should intervention be considered. No free bony or metal fragments are identified. Allowing for beam hardening artifact, no enhancing mass. No free fluid in the pelvis or hematoma. Urinary bladder distends normally. IMPRESSION: CT features of greater trochanteric bursitis with large amount of fluid in the bursa and peripheral contrast-enhancement, compatible with inflammation. Superimposed infection is not excluded. Large amount of subcutaneous edema is present adjacent to the greater trochanter without subcutaneous gas or a radiopaque foreign body. Orthopedic surgery consultation could be considered if appropriate. ACT 112: Positive. There are findings on this examination that require communication between the performing entity and the patient following Patient Test Result Information Act ([place] ACT 112) guidelines. Electronically signed by Merline Almaraz 06-01-2024 6:37 PM
[2024-06-01 20:05] LABS: Basophils # (auto) 0.08 K/uL (0.00-0.20); Basophils % (auto) 0.8 %; Eosinophils # (auto) 0.91 K/uL (0.00-0.50); Eosinophils % (auto) 9.2 %; Hematocrit (blood only) 33.4 % (37.0-47.0); Immature Granulocytes # (auto) 0.02 K/uL (0.01-0.20); Immature Granulocytes % (auto) 0.2 %; Lymphocytes # (auto) 2.28 K/uL (1.20-3.40); Lymphocytes % (auto) 23.1 %; Mean Corpuscular Hemoglobin 29.8 pg (25.0-34.0); Mean Corpuscular Hgb Conc 32.9 g/dL (32.0-36.0); Mean Corpuscular Volume 90.5 fL (80.0-100.0); Mean Platelet Volume 9.4 fL (9.4-12.4); Monocytes # (auto) 0.93 K/uL (0.11-0.59); Monocytes % (auto) 9.4 %; Neutrophils # (auto) 5.64 K/uL (1.40-6.50); Neutrophils % (auto) 57.3 %; Platelet Count 266 K/uL (130-400); RDW Coefficient of Variation 13.4 % (11.5-14.5); RDW Standard Deviation 44.7 fL (36.4-46.3); Red Blood Count 3.69 M/uL (4.20-5.40); White Blood Count 9.86 K/ul (4.8-10.8)
--- OUTSIDE RECORDS SUMMARY | 2024-06-01 20:52 | External Medical Summary | Continuity of Care Document ---
Author Name Unknown Organization [facility] [address] [facility] [address] [id number] Care Team Providers Care Staffing Executive Name Role Phone Dao Jefferson Primary Care Physician [phone] [id number]): [facility]/03[facility] [address] [facility] [place] 30 [facility] [address] [place] [address] [phone] Encounter Diagnosis History of revision of total replacement of left hip joint(Discharge Diagnosis) - 01/03/24 Discharge Disposition: Home or Self Care Attending Physician: JEANINE Purvis William R Allergies, Adverse Reactions, Alerts Substance Criticality Severity Reaction Reaction Severity Status midazolam seizures Active Adhesive bandage itchy Act bessie Assessment and Plan Extracted from: Title:Clinical Document Author:JEANINE Purvis Willi am R Date:01/03/24 OUTPATIENT NOTE Name: ALEXEY PANDEY Patient Number:1 [id number] : 1950 Date of Service: 01/03/2024 Chief complaint: Status post revision left total hip arthroplasty History of present illness: Patient presents today for a 6-week follow-up evaluation. She underwent a revision left total hip arthroplasty on 11/23/2023 due to instability with dislocation. Her revision included a constrained liner. She states the hip feels stable and she is able to ambulate with out any gait aids but does use a cane when she is out for longer distances. Her incision is healing well and she denies any fever, chills, or shakes. She still has some weakness in her thigh muscles as well as some neuropathy which she has dealt with on a chronic basis in the lower extremities. She is not taking any pain medication presently. Physical exam: Left lateral hip incision is healing well. There is no erythema or excessive swelling. I am able to flex her hip up to 90 degrees with no discomfort. Internal and external rotation is smooth at 15 degrees with no subluxation noted. She has no distal edema in the left lower extremity. Assessment: Status post revision left total hip arthroplasty for instability Plan: Patient will continue to increase her activities as tolerated. We will see her again in 1 year for a follow-up with x-rays of the left hip. She was advised to call if she has any issues in the meantime. _ Immunizations Given and Recorded Vaccine Date Status Refusal Reason influenza virus vaccine, inactivated 11/24/23 Give n Medications aspirin 81 mg oral delayed release tablet Start: 11/25/23 7:25:00 AM EDT, 1 tab, PO, bid, Disp# 60 tab, Pharmacy: [facility] Start Date: 11/25/23 Stop Date: 12/25/23 Status: Ordered cetirizine 10 mg oral tablet Start: 07/28/23 11:22:00 AM EDT, 1 tab, PO, qhs Start Date: 07/28/23 Status: Ordered doxycycline monohydrate 100 mg oral capsule Start: 07/28/23 11:22:00 AM EDT, 1 cap, PO, bid Start Date: 07/28/23 Status: Ordered famotidine 40 mg oral tablet Start: 07/28/23 11:21:00 AM EDT, 1 tab, PO, bid Start Date: 07/28/23 Status: Ordered furosemide 20 mg oral tablet Start: 07/28/23 11:21:00 AM EDT, 1 tab, PO, Daily Start Date: 07/28/23 Status: Ordered gabapentin 400 mg oral capsule TAKE 1 CAPSULE AT BEDTIME WITH GABAPENTIN 600 MG Start Date: 11/12/23 Status: Ordered gabapentin 600 mg oral tablet Start: 07/28/23 11:21:00 AM EDT, 1 tab, PO, qhs Start Date: 07/28/23 Status: Ordered oxyCODONE 5 mg oral tablet Start: 11/25/23 7:25:00 AM EDT, 5 mg =, PO, q4h, Disp# 20 tab, Refills: 0, PRN: pain - moderate (4-6), Pharmacy: [facility] Start Date: 11/25/23 Status: Ordered Potassium Chloride (Eqv-K-Tab) 10 mEq oral tablet, extended release Start: 08/06/23 9:44:00 AM EDT, 1 tab, PO, Daily Start Date: 08/06/23 Status: Ordered traZODone 100 mg oral tablet Start: 07/28/23 11:21:00 AM EDT, 2 tab, PO, qhs Start Date: 07/28/23 Status: Ordered Tylenol 500 mg oral tablet Start: 11/25/23 7:25:00 AM EDT, 2 tab, PO, q8h Start Date: 11/25/23 Status: Ordered Ultram 50 mg oral tablet Start: 12/23/23 11:16:00 AM EST, 1 tab, PO, qhs, Disp# 15 tab, Refills: 0, post- op patient, for continued use., Pharmacy: [id number] Start Date: 12/23/23 Status: Ordered Mental Status 01/03/24 Barriers to Learning one year None evide nt Mandatory Health Literacy Documentation Yes Health Literacy Communication Barriers N ever Primary Language Lao Problem List Condition Confirmation Course Effective Dates Status Health St atus Informant Dislocation of hip prosthesis Confirmed Active 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 Pre-op exam Confirmed Active Diagnosis Diagnosis Type Effective Dates Health Status Clinical Service Informant History of revision of total replacement of left hip joint Discharge Diagnosis 01/03/24 Non-Specified Procedures Procedure Date Related Diagnosis Body Site Status Hip joint 1 11/23/23 Completed Revision 2 11/23/23 Completed Hip fracture 3 03/2023 Completed Hip arthroplasty 4 01/2023 Comple cait Arm fracture 2008 Completed Cholecystectomy 1974 Completed APPENDECTOMY 1962 Completed Tonsillectomy and adenoidectomy 1956 Completed 1Revision left total hip arthroplasty 2l gi 3fell, left hip fracture with removal infected GI and placement of antibiotic spacer 4left 5L. UE ORIF Social History Social History Type Response Smoking Status Never smoked cigaret narendra Sex Female Sex Representation Female (finding) Implantable Device List Procedure Provider Procedure Date Device Type Site Unknown Unknown 11/23/23 Unknown Unknown Device Identifier Serial Number Lot or Batch Number Manufacturing Date Expiration Date Distinct Identification Code MRI Safety Implantable Status Assigning Authority Unknown Unknown [id number] Unknown 08/07/26 Unknown Unknown Active Unkn own Unknown Unknown [id number] Unknown 07/08/26 Unknown Unknown Active Unk nown Outpatient Note * JEANINE Purvis, Sajan Linn: PERFORM Event Display: .Outpt Note Authored Date: [id number] OUTPATIENT NOTE Name: ALEXEY PANDEY Patient Number:1 [id number] : 1950 Date of Service: 01/03/2024 Chief complaint: Status post revision left total hip arthroplasty History of present illness: Patient presents today for a 6-week follow-up evaluation. She underwenta revision left total hip arthroplasty on 11/23/2023 due to instability with dislocation. Her revision included a constrained liner. She states the hip feels stable and she is able to ambulate with out any gait aids but does use a cane when she is out for longer distances. Her incision is healing well and she denies any fever, chills, or shakes. She still has some weakness in her thigh muscles aswell as some neuropathy which she has dealt with on a chronic basis in the lower extremities. She is not taking any pain medication presently. Physical exam: Left lateral hip incision is healing well. There is no erythema or excessive swelling. I am able to flex her hip up to 90 degrees with no discomfort. Internal and external rotation is smooth at 15 degrees with no subluxation noted. She has no distal edema in the left lower extremity. Assessment: Status post revision left total hip arthroplasty for instability Plan: Patient will continue to increase her activities as tolerated. We will see her again in 1 year for a follow-up with x-rays of the left hip. She was advised to call if she has any issues in the meantime. _ Electronic Signature on File Electronically Reviewed/Signed by: Sajan Purvis PA-C Author Signature Dt/Tm:01/03/2024 12:49 PM Division of Orthopaedics [facility] Patient Care team information Care Team Personnel Name: JEANINE Jefferson Jared J Position: Referring Member Role: Primary Care Provider Address: [address] Name: Arjun Haro Jennifer Position: Pharmacist Member Role: Pharmacy - Lifetime Care Team Related Persons Name: ERIC PRO
--- OUTSIDE RECORDS SUMMARY | 2024-06-01 20:52 | External Medical Summary | Continuity of Care Document ---
Author Name Unknown Organization [facility] [address] Address 30 [facility] [address] [id number] Care Team Providers Care Peanut Shaker Name Role Phone Dao Jfeferson Primary Care Physician [phone] [id number](s): [facility]23 [facility] [place] [address] [facility] [address] [place] [address] [phone] Encounter Diagnosis History of revision of total replacement of left hip joint(Discharge Diagnosis) - 12/15/23 Discharge Disposition: Home or Self Care Attending Physician: JEANINE Purvis William R Allergies, Adverse Reactions, Alerts Substance Criticality Severity Reaction Reaction Severity Status midazolam seizures Active Adhesive bandage itchy Act bessie Assessment and Plan Extracted from: Title:Clinical Document Author:JEANINE Purvis Willi am R Date:12/15/23 OUTPATIENT NOTE Name: ALEXEY PANDEY Patient Number:1 [id number] : 1950 Date of Service: 12/15/2023 Chief complaint: Status post revision left hip arthroplasty History of present illness: Patient presents today for a 3 week follow-up. She underwent a revision left total hip arthroplasty on 11/23/2023 for chronic dislocations of the left hip. She has done well postoperatively but still complains of pain around the groin area and posterior left hip areas. She has not had any instability in her hip but she is quite anxious as she feels when her knee turns inward she is afraid the hip is going to dislocate which has done in the past. She is ambulating well and comes in with her rolling walker today. She denies any fever, chills, or shakes. Physical exam: Left lateral hip incision is healing well. There is some scabbing up and down the incision but no erythema. She continues to have a moderate amount of soft tissue swelling around the incision site. I am able to flex her hip to 90 degrees with smooth internal and external rotation at 10 to 15 degrees. She is still somewhat weak and is unable to actively flex her hip but must use her hands to help raise her leg. She is able to stand and ambulates without difficulty. Assessment: Status post revision left total hip arthroplasty 11/23/2023 Plan: Patient was reassured that her hip is stable and we certainly do not think she is going to dislocate again. She was advised to continue increasing her activities as tolerated and we will see her again in a few weeks for her 6-week follow-up. She was advised to call if she has any issues in the meantime. _ Immunizations Given and Recorded Vaccine Date Status Refusal Reason influenza virus vaccine, inactivated 11/24/23 Give n Medications aspirin 81 mg oral delayed release tablet Start: 11/25/23 7:25:00 AM EDT, 1 tab, PO, bid, Disp# 60 tab, Pharmacy: [facility] [place] Start Date: 11/25/23 Stop Date: 12/25/23 Status: [...] 0, PRN: pain - moderate (4-6), Pharmacy: [facility] Start Date: 11/25/23 Status: Ordered Potassium Chloride [...] Ordered Ultram 50 mg oral tablet Start: 11/25/23 7:25:00 AM EDT, 1 tab, PO, q8h, Disp# 30 tab, Pharmacy: [facility] Start Date: 11/25/23 Status: Ordered Mental Status 12/15/23 Barriers to Learning one year None evide nt Mandatory Health Literacy Documentation Yes Health Literacy Communication Barriers N ever Primary Language Latvian Problem List Condition Confirmation Course Effective Dates Status Health St atus Informant Dislocation of hip prosthesis Confirmed Active 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 Pre-op exam Confirmed Active Diagnosis Diagnosis Type Effective Dates Health Status Clinical Service Informant History of revision of total replacement of left hip joint Discharge Diagnosis 12/15/23 Non-Specified Procedures Procedure Date Related Diagnosis Body Site Status Hip joint 1 11/23/23 Completed Revision 2 11/23/23 Completed Hip fracture 3 03/2023 Completed Hip arthroplasty 4 01/2023 Comple cait Arm fracture 2008 Completed Cholecystectomy 1974 Completed APPENDECTOMY 1963 Completed Tonsillectomy and adenoidectomy 1956 Completed 1Revision left total hip arthroplasty 2l gi 3fell, left hip fracture with removal infected GI and placement of antibiotic spacer 4left 5L. UE ORIF Social History Social History Type Response Smoking Status Former Smoker, quit > 1 yr Sex Female Sex Representation Female (finding) Implantable Device List Procedure Provider Procedure Date Device Type Site Unknown Unknown 11/23/23 Unknown Unknown Device Identifier Serial Number Lot or Batch Number Manufacturing Date Expiration Date Distinct Identification Code MRI Safety Implantable Status Assigning Authority Unknown Unknown [id number] Unknown 08/07/26 Unknown Unknown Active Unkn own Unknown Unknown [id number] Unknown 07/08/26 Unknown Unknown Active Unk nown Outpatient Note * JEANINE Purvis, Sajan Linn: PERFORM Event Display: .Outpt Note Authored Date: [id number] OUTPATIENT NOTE Name: ALEXEY PANDEY Patient Number:1 [id number] : 1950 Date of Service: 12/15/2023 Chief complaint: Status post revision left hip arthroplasty History of present illness: Patient presents today for a 3 week follow-up. She underwent a revisionleft total hip arthroplasty on 11/23/2023 for chronic dislocations of the left hip. She has done well postoperatively but still complains of pain around the groin area and posterior left hip areas. She has not had any instability in her hip but she is quite anxious as she feels when her knee turns inward she is afraid the hip is going to dislocate which has done in the past. She is ambulating well and comes in with her rolling walker today. She denies any fever, chills, or shakes. Physical exam: Left lateral hip incision is healing well. There is some scabbing up and down the incision but no erythema. She continues to have a moderate amount of soft tissue swelling around the incision site. I am able to flex her hip to 90 degrees with smooth internal and external rotation at 10 to 15 degrees. She is still somewhat weak and is unable to actively flex her hip but must use herhands to help raise her leg. She is able to stand and ambulates without difficulty. Assessment: Status post revision left total hip arthroplasty 11/23/2023 Plan: Patient was reassured that her hip is stable and we certainly do not think she is going to dislocate again. She was advised to continue increasing her activities as tolerated and we will see her again in a few weeks for her 6-week follow-up. She was advised to call if she has any issues in the meantime. _ Electronic Signature on File Electronically Reviewed/Signed by: Sajan Purvis PA-C Author Signature Dt/Tm:12/15/2023 01:42 PM Division of Orthopaedics [facility] Patient Care team information Care Team Personnel Name: JEANINE Jefferson, Dao Kelly Position: Referring Member Role: Primary Care Provider Address: [address] [address] Name: Arjun Haro Jennifer Position: Pharmacist Member Role: Pharmacy - Lifetime Care Team Related Persons Name: ERIC PRO
[2024-06-01] MEDS ORDERED: ACETAMINOPHEN 325 MG TAB PO PRN (21:07)
--- NOTE | 2024-06-01 21:19 | History & Physical Report ---
Date of Service June 01, 2024 Assessment & Plan (1) Hip pain: Plan: Assessment: 1. Acute left hip pain consistent with probable greater trochanteric bursitis. Orthopedics has been consulted. Will do a sed rate and CRP in the morning. Tentative plan for the ER provider is for orthopedics to tap the bursitis in the morning. Again the patient does have an extensive history with this left hip including multiple left total hip arthroplasties with closed reductions due to recurrent dislocations. Her most recent surgery was in at [facility] November 2023 when she had a revision of her left total hip arthroplasty. Again orthopedics has been spoken to multiple times both at [place] and locally by the ER providers. As needed oxycodone and as needed Tylenol for now. Falls precautions. 2. Osteoarthritis. 3. Insomnia. 4. GERD. 5. Anemia of chronic disease stable with a hemoglobin of 11.0 g/dL this evening. Plan: As discussed above. Please refer to orders for further planning. History of Present Illness Chief Complaint: Left hip pain Primary Care Provider: Dao Jefferson PA-C This is a pleasant 71-year-old female with extensive history of her left hip. She has had multiple total hip arthroplasties the first 1 had to be revised due to recurrent dislocation. This revision most recently took place at [facility] November 2023. She presented here today with left hip pain ongoing for approximately 48 hours. No history of recent trauma. In the ER she had an abnormal left hip x-ray with a question of a derangement of her hardware. Consultation took place by the ER provider with the orthopod at [facility] who reviewed the films and stated that this was not a derangement of her hardware rather than a locking ring they put in with revisions and did not see any acute surgical issue by x-ray. The patient's pain was severe. She could not bear weight. They gave oxycodone and tramadol. We were called to admit to the hospital. However, we were recommended a CT of the extremity due to her pain being out of proportion to her x-ray findings and her extensive left hip history. CT of the extremity was abnormal and large fluid collection as described in the CAT scan report consistent with bursitis but infection cannot be ruled out. White blood cell count was reassuring. After CAT scan was resulted consultation took place with the ER provider with local orthopedics Dr. Davis who has consented to see the patient in consultation and possibly tap the bursa tomorrow. In the meantime we will admit the patient use as needed Tylenol and as needed oxycodone for pain control. Falls precautions. No chemical DVT prophylaxis tonight given the fact that they might tap the joint in the morning. Will use SCDs. Do a sed rate and a CRP. Allergies Allergy/AdvReac Type Severity Reaction Status Date / Time No Known Allergies Allergy Unverified 07/17/23 12:22 Home Medications Medication Instructions Recorded Confirmed Type cetirizine 10 mg tablet 10 mg PO DAILY 07/17/23 06/01/24 History doxycycline monohydrate 100 mg 100 mg PO DAILY 07/17/23 06/01/24 History capsule famotidine 40 mg tablet 40 mg PO DAILY 07/17/23 06/01/24 History furosemide 20 mg tablet 20 mg PO DAILY PRN Edema 07/17/23 06/01/24 History gabapentin 400 mg capsule 400 mg PO UD 07/17/23 06/01/24 History gabapentin 600 mg tablet 600 mg PO DAILY 07/17/23 06/01/24 History trazodone 100 mg tablet 200 mg PO HS 07/17/23 06/01/24 History B Complex 1 tab PO QAM 06/01/24 06/01/24 History Probiotic 1 cap PO DAILY 06/01/24 06/01/24 History Vitamin D3 1 cap PO QAM 06/01/24 06/01/24 History acetaminophen 500 mg tablet 1,500 mg PO BID 06/01/24 06/01/24 History multivitamin 1 tab PO QAM 06/01/24 06/01/24 History potassium chloride 10 mEq 10 meq PO DIRECTED PRN take 06/01/24 06/01/24 History tablet,extended release with fluid pill tramadol 50 mg tablet 50 mg PO DIRECTED PRN Pain 06/01/24 06/01/24 History vitamin E 1 cap PO QAM 06/01/24 06/01/24 History Past Med/Surg History Problem List (Updated 06/01/24 @ 17:32 by PJ Rabago) Hip pain (Acute) Hypokalemia Hip dislocation, left Medical History History of staphylococcal infection Ambulatory dysfunction Leg swelling Surgical History History of left hip replacement S/P hip replacement Social History Smoking Status: Former smoker Tobacco Type: Cigarettes Second Hand Exposure: No; Do You Dip or Chew Tobacco: No; Hx Alcohol Use: No Hx Substance Use: No Preferred Language: Bhutanese Communication Ability: Effective Escalator Operator Required: No Beliefs That Will Affect Care: None Current Living Situation: Family Current Living Situation Comment: With son Feels Safe at Home: Yes Assistive Devices: Cane and Walker Review of Systems Review of Systems: A 10 point review of system was obtained and unless otherwise stated here or in history of present illness are negative and noncontributory to chief complaint. Physical Exam Physical Exam: In General: In general very pleasant 73-year-old female she is alert and oriented x 3, examination she did state that the oxycodone has relieved her pain significantly but she still has some pain but it is tolerable currently she appears to be in no acute distress. She reports he is retired from the [employer] where she worked for greater than 20 years. HEENT: Normocephalic atraumatic pupils are equal round and reactive to light bilaterally. No scleral icterus no conjunctival injection external auditory canals are patent septum is in the midline nose is without discharge oral mucosa is pink and moist without lesion. NECK: Supple no rigidity no lymphadenopathy no thyromegaly no carotid bruits no JVD no masses. HEART: Regular rate and rhythm I do not appreciate any ectopy or rub. No murmur. LUNGS: Clear to auscultation bilaterally and anteriorly with no evidence of adventitious sounds/wheezes rales or rhonchi. ABDOMEN: Soft nontender, no rebound, no peritoneal signs, positive bowel sounds, no appreciable organomegaly. EXTREMITIES: Intact neurovascularly. Her feet are cold to the touch which is normal for her. This is bilateral. Inspection of her left hip region. She does have tenderness to palpation over the greater trochanter region consistent with greater trochanteric bursitis. The incisions intact. There is no evidence cutaneously of infection. NEUROLOGICAL: Cranial nerves II through XII are grossly intact with no focal deficit elicited upon examination. . Results & Data Results & Data Vital Signs (Past 12 Hours) Vital Signs Temp Pulse Pulse Resp BP BP Pulse Ox 06/01/24 20:00 102 H 19 162/88 H 99 06/01/24 19:30 86 14 146/82 H 97 06/01/24 18:30 83 14 156/81 H 99 06/01/24 17:11 85 06/01/24 16:52 96 H 17 152/113 H 98 06/01/24 14:58 81 20 97 06/01/24 13:33 37 C 88 20 175/91 H 99 O2 Del Method 06/01/24 20:00 Room Air 06/01/24 19:30 Room Air 06/01/24 18:30 Room Air 06/01/24 17:11 06/01/24 16:52 Room Air 06/01/24 14:58 Room Air 06/01/24 13:33 Room Air Code Status & VTE Plan Code Status DNR/DNI. I personally discussed with patient. VTE Prophylaxis Plan VTE Prophylaxis will be ordered: Yes PG Care Time/CCT Total # of Minutes Spent Total Time Spent with Patient: Total time spent is greater than 50% in coordination of care (as documented) at patient's floor/unit and/or counseling patient: Coding Level of Care Code 05939 INT INP/OBS CARE 2/55MIN Diagnoses Hip pain M25.552 Laterality: left (1) Hip pain Laterality: left Qualified Code(s): M25.552 - Pain in left hip
[2024-06-01] MEDS: oxyCODONE HCL IR 5 MG TAB (IMMEDIATE RELEASE) PO PRN (22:50)
[2024-06-01 22:55] LABS: C Reactive Protein 6.07 mg/dl (0-0.5)
[2024-06-01] MEDS: traZODone HCL 100 MG TAB PO SCH (23:28)
[2024-06-02] MEDS ORDERED: MoRPHine SULFATE 2 MG/ML CARP IV PRN (07:51)
[2024-06-02 08:07] VITALS: RESP 15; O2SAT 96
[2024-06-02] MEDS ORDERED: GABAPENTIN 400 MG CAP PO SCH (09:00)
[2024-06-02] MEDS: DOXYCYCLINE HYCLATE 100 MG CAP PO SCH (09:29)
[2024-06-02] MEDS: GABAPENTIN 600 MG TAB PO SCH (09:31)
[2024-06-02] MEDS: FAMOTIDINE 40 MG TABLET PO SCH (09:31)
[2024-06-02] MEDS: ADVANCED PROBIOTIC 625 MG CAPSULE PO SCH (09:31)
[2024-06-02] MEDS: CETIRIZINE HCL 10 MG TABLET PO SCH (09:31)
[2024-06-02 10:21] LABS: Basophils # (auto) 0.04 K/uL (0.00-0.20); Basophils % (auto) 0.5 %; Eosinophils # (auto) 0.29 K/uL (0.00-0.50); Eosinophils % (auto) 3.7 %; Hematocrit (blood only) 34.5 % (37.0-47.0); Hemoglobin 11.1 g/dl (12.0-16.0); Immature Granulocytes # (auto) 0.02 K/uL (0.01-0.20); Immature Granulocytes % (auto) 0.3 %; Lymphocytes # (auto) 1.46 K/uL (1.20-3.40); Lymphocytes % (auto) 18.6 %; Mean Corpuscular Hemoglobin 29.1 pg (25.0-34.0); Mean Corpuscular Hgb Conc 32.2 g/dL (32.0-36.0); Mean Corpuscular Volume 90.3 fL (80.0-100.0); Monocytes # (auto) 0.79 K/uL (0.11-0.59); Monocytes % (auto) 10.1 %; Neutrophils # (auto) 5.25 K/uL (1.40-6.50); Neutrophils % (auto) 66.8 %; Platelet Count 296 K/uL (130-400); RDW Coefficient of Variation 13.4 % (11.5-14.5); RDW Standard Deviation 44.7 fL (36.4-46.3); Red Blood Count 3.82 M/uL (4.20-5.40); White Blood Count 7.85 K/ul (4.8-10.8)
[2024-06-02 10:36] LABS: Albumin Globulin Ratio 1.4 (0.9-2); Albumin Level 3.8 gm/dl (3.4-5.0); BUN Creatinine Ratio 12.7 (10-20); Bilirubin,Total 0.8 mg/dl (0.2-1.0); C Reactive Protein 8.62 mg/dl (0-0.5); Chol HDL Ratio 2.3 (0-5); Creatinine Clr Calc Pharmacy 89.2 ml/min; Globulin 2.8 gm/dl (2.5-4.0); Magnesium 1.9 mg/dl (1.7-2.4); Potassium 3.8 mmol/L (3.5-5.1); Total Protein 6.6 gm/dl (6.0-8.3)
[2024-06-02 10:41] LABS: INR 0.9 (0.9-1.1)
[2024-06-02 10:50] LABS: Thyroid Stimulating Hormone 2.832 uIu/ml (0.300-4.500)
--- NOTE | 2024-06-02 11:07 | Orthopedic Consultation ---
Date of Consultation June 02, 2024 Assessment & Plan (1) Infection of left prosthetic hip joint: Images pushed to [employer] system for review by orthopedist at [place] Plan is to discharge to [facility] under the care of Dr. Yoseph Wong. Patient understands this Transfer paperwork will be completed She will be a MedSurg to [facility] transfer Transfer center at [place] and [facility] were both contacted and transfer is being processed. History of Present Illness Reason for Consultation: Septic left hip (periprosthetic) Requesting Physician: Mikie Buckley MD Attending Physician: Quiana Herring MD History of Present Illness This is a pleasant 71-year-old female with extensive history of her left hip. She has had multiple total hip arthroplasties the first 1 had to be revised due to recurrent dislocation. This revision most recently took place at [facility] November 2023. She presented here today with left hip pain ongoing for approximately 48 hours. No history of recent trauma. In the ER she had an abnormal left hip x-ray with a question of a derangement of her hardware. Consultation took place by the ER provider with the orthopod at [facility] who reviewed the films and stated that this was not a derangement of her hardware rather than a locking ring they put in with revisions and did not see any acute surgical issue by x-ray. The patient's pain was severe. She could not bear weight. They gave oxycodone and tramadol. We were called to admit to the hospital. However, we were recommended a CT of the extremity due to her pain being out of proportion to her x-ray findings and her extensive left hip history. CT of the extremity was abnormal and large fluid collection as described in the CAT scan report consistent with bursitis but infection cannot be ruled out. White blood cell count was reassuring. After CAT scan was resulted consultation took place with the ER provider with local orthopedics Dr. Davis who has consented to see the patient in consultation and possibly tap the bursa tomorrow. In the meantime we will admit the patient use as needed Tylenol and as needed oxycodone for pain control. Falls precautions. No chemical DVT prophylaxis tonight given the fact that they might tap the joint in the morning. Will use SCDs. CRP is elevated. Initial sed rate was within normal limits. Allergies Allergy/AdvReac Type Severity Reaction Status Date / Time No Known Allergies Allergy Unverified 07/17/23 12:22 Home Medications Medication Instructions Recorded Confirmed Type cetirizine 10 mg tablet 10 mg PO DAILY 07/17/23 06/01/24 History doxycycline monohydrate 100 mg 100 mg PO DAILY 07/17/23 06/01/24 History capsule famotidine 40 mg tablet 40 mg PO DAILY 07/17/23 06/01/24 History furosemide 20 mg tablet 20 mg PO DAILY PRN Edema 07/17/23 06/01/24 History gabapentin 400 mg capsule 400 mg PO UD 07/17/23 06/01/24 History gabapentin 600 mg tablet 600 mg PO DAILY 07/17/23 06/01/24 History trazodone 100 mg tablet 200 mg PO HS 07/17/23 06/01/24 History B Complex 1 tab PO QAM 06/01/24 06/01/24 History Probiotic 1 cap PO DAILY 06/01/24 06/01/24 History Vitamin D3 1 cap PO QAM 06/01/24 06/01/24 History acetaminophen 500 mg tablet 1,500 mg PO BID 06/01/24 06/01/24 History multivitamin 1 tab PO QAM 06/01/24 06/01/24 History potassium chloride 10 mEq 10 meq PO DIRECTED PRN take 06/01/24 06/01/24 History tablet,extended release with fluid pill tramadol 50 mg tablet 50 mg PO DIRECTED PRN Pain 06/01/24 06/01/24 History vitamin E 1 cap PO QAM 06/01/24 06/01/24 History Patient History Medical History History of staphylococcal infection Ambulatory dysfunction Leg swelling Surgical History History of left hip replacement S/P hip replacement Social History Smoking Status: Former smoker Tobacco Type: Cigarettes Second Hand Exposure: No; Do You Dip or Chew Tobacco: No; Hx Alcohol Use: No Hx Substance Use: No Preferred Language: Sinhala 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 Previous incision sites, 2 over posterior lateral hip and 1 over anterolateral hip are closed completely with no palpable fluctuance or drainage. She is unable to perform active straight leg raise test. She is able to actively dorsi and plantarflex her foot without issue. She is able to detect light sensation to touch over the pads of all digits. Her calf is soft and supple and nontender to palpation. Logroll test causes significant discomfort in the posterior lateral hip. There is no shortening or external rotation. Patient tolerates passive hip flexion to 65 degrees. Internal rotation is limited to 0 degrees and external rotation to 30 degrees. When I placed her on the right lateral decubitus position she had exquisite ten derness to palpation over the buttocks near the SI joint and over the greater trochanter. There is no palpable fluctuance. Area was very firm, erythematous and warm to touch. Results & Data Vital Signs (Past 12 Hours) Vital Signs Temp Pulse Resp BP Pulse Ox O2 Del Method 06/02/24 07:00 37.0 C 84 15 151/82 H 96 Room Air Diagnostic Findings Laboratory Results WBC 7.85 K/ul (4.8-10.8) 06/02/24 08:23 RBC 3.82 M/uL (4.20-5.40) L 06/02/24 08:23 Hgb 11.1 g/dl (12.0-16.0) L 06/02/24 08:23 POC Hgb 11.2 g/dl (12.0-16.0) L 06/01/24 17:44 Hct 34.5 % (37.0-47.0) L 06/02/24 08:23 POC Hct 33 % (37-47) L 06/01/24 17:44 MCV 90.3 fL (80.0-100.0) 06/02/24 08:23 MCH 29.1 pg (25.0-34.0) 06/02/24 08:23 MCHC 32.2 g/dL (32.0-36.0) 06/02/24 08:23 RDW Std Deviation 44.7 fL (36.4-46.3) 06/02/24 08:23 RDW Coeff of Rosette 13.4 % (11.5-14.5) 06/02/24 08:23 Plt Count 296 K/uL (130-400) 06/02/24 08:23 MPV 10.0 fL (9.4-12.4) 06/02/24 08:23 Immature Gran % (Auto) 0.3 % 06/02/24 08:23 Neut % (Auto) 66.8 % 06/02/24 08:23 Lymph % (Auto) 18.6 % 06/02/24 08:23 [place] % (Auto) 10.1 % 06/02/24 08:23 Eos % (Auto) 3.7 % 06/02/24 08:23 Baso % (Auto) 0.5 % 06/02/24 08:23 Neut # (Auto) 5.25 K/uL (1.40-6.50) 06/02/24 08:23 Lymph # (Auto) 1.46 K/uL (1.20-3.40) 06/02/24 08:23 [place] # (Auto) 0.79 K/uL (0.11-0.59) H 06/02/24 08:23 Eos # (Auto) 0.29 K/uL (0.00-0.50) 06/02/24 08:23 Baso # (Auto) 0.04 K/uL (0.00-0.20) 06/02/24 08:23 Immature Gran # (Auto) 0.02 K/uL (0.01-0.20) 06/02/24 08:23 Absolute Nucleated RBC Cancelled 06/01/24 17:39 Nucleated RBC % (auto) Cancelled 06/01/24 17:39 Neutrophils % (Manual) Cancelled 06/01/24 17:39 Band Neutrophils % Cancelled 06/01/24 17:39 Lymphocytes % (Manual) Cancelled 06/01/24 17:39 Prolymphocyte % Cancelled 06/01/24 17:39 Reactive Lymphs % (Man) Cancelled 06/01/24 17:39 Monocytes % (Manual) Cancelled 06/01/24 17:39 Eosinophils % (Manual) Cancelled 06/01/24 17:39 Basophils % (Manual) Cancelled 06/01/24 17:39 Metamyelocytes % (Man) Cancelled 06/01/24 17:39 Myelocytes % (Man) Cancelled 06/01/24 17:39 Promyelocytes % (Man) Cancelled 06/01/24 17:39 Blast Cells % (Manual) Cancelled 06/01/24 17:39 Plasma Cell % (Manual) Cancelled 06/01/24 17:39 Other Cells % Cancelled 06/01/24 17:39 Nucleated RBC % Cancelled 06/01/24 17:39 Neutrophils # (Manual) Cancelled 06/01/24 17:39 Band Neutrophils # Cancelled 06/01/24 17:39 Total Absolute Neuts Cancelled 06/01/24 17:39 Lymphocytes # (Manual) Cancelled 06/01/24 17:39 Prolymphocyte # Cancelled 06/01/24 17:39 Reactive Lymphs # Cancelled 06/01/24 17:39 Total Abs Lymphocytes Cancelled 06/01/24 17:39 Monocytes # (Manual) Cancelled 06/01/24 17:39 Eosinophils # (Manual) Cancelled 06/01/24 17:39 Basophils # (Manual) Cancelled 06/01/24 17:39 Metamyelocytes # (Man) Cancelled 06/01/24 17:39 Myelocytes # (Manual) Cancelled 06/01/24 17:39 Promyelocytes # (Man) Cancelled 06/01/24 17:39 Blast Cells # (Man) Cancelled 06/01/24 17:39 Plasma Cell # (Manual) Cancelled 06/01/24 17:39 Other Cells # Cancelled 06/01/24 17:39 Nucleated RBCs # (Man) Cancelled 06/01/24 17:39 Hypersegmented Neuts Cancelled 06/01/24 17:39 Hyposegmented Neuts Cancelled 06/01/24 17:39 Hypogranular Neuts Cancelled 06/01/24 17:39 Large Granular Lymphs Cancelled 06/01/24 17:39 # Lrg Granular Lymphs Cancelled 06/01/24 17:39 Hairy Cells Cancelled 06/01/24 17:39 Smudge Cells Cancelled 06/01/24 17:39 Toxic Granulation Cancelled 06/01/24 17:39 Toxic Vacuolation Cancelled 06/01/24 17:39 Dohle Bodies Cancelled 06/01/24 17:39 Alix Rods Cancelled 06/01/24 17:39 Platelet Estimate Cancelled 06/01/24 17:39 Hypogranular Platelets Cancelled 06/01/24 17:39 Giant Platelets Cancelled 06/01/24 17:39 Platelet Satelliting Cancelled 06/01/24 17:39 RBC Morphology Cancelled 06/01/24 17:39 Polychromasia Cancelled 06/01/24 17:39 Hypochromasia Cancelled 06/01/24 17:39 Poikilocytosis Cancelled 06/01/24 17:39 Basophilic Stippling Cancelled 06/01/24 17:39 Anisocytosis Cancelled 06/01/24 17:39 Microcytosis Cancelled 06/01/24 17:39 Macrocytosis Cancelled 06/01/24 17:39 Spherocytes Cancelled 06/01/24 17:39 Pappenheimer Bodies Cancelled 06/01/24 17:39 Sickle Cells Cancelled 06/01/24 17:39 Target Cells Cancelled 06/01/24 17:39 Tear Drop Cells Cancelled 06/01/24 17:39 Ovalocytes Cancelled 06/01/24 17:39 Stomatocytes Cancelled 06/01/24 17:39 [place] Bodies Cancelled 06/01/24 17:39 Echinocytes Cancelled 06/01/24 17:39 Acanthocytes (Spur) Cancelled 06/01/24 17:39 Rouleaux Cancelled 06/01/24 17:39 RBC Agglutinates Cancelled 06/01/24 17:39 Schistocytes Cancelled 06/01/24 17:39 ESR 16 mm/hr (0-30) 06/01/24 19:54 Sezary Cell Cancelled 06/01/24 17:39 PT 10.0 Seconds (9.0-12.0) 06/02/24 08:23 INR 0.9 (0.9-1.1) 06/02/24 08:23 POC Sodium 139 mmol/L (135-144) 06/01/24 17:44 Sodium 139 mmol/L (136-145) 06/02/24 08:23 POC Potassium 3.9 mmol/L (3.3-5.0) 06/01/24 17:44 Potassium 3.8 mmol/L (3.5-5.1) 06/02/24 08:23 POC Chloride 102 mmol/L (101-112) 06/01/24 17:44 Chloride 103 mmol/L (98-107) 06/02/24 08:23 Carbon Dioxide 27 mmol/L (21-32) 06/02/24 08:23 POC Total CO2 25 mmol/L (24-31) 06/01/24 17:44 Anion Gap 9 (3-11) 06/02/24 08:23 POC Anion Gap 17.0 mmol/L (16-25) 06/01/24 17:44 POC BUN 9 mg/dl (7-18) 06/01/24 17:44 BUN 8 mg/dl (6-23) 06/02/24 08:23 Creatinine 0.63 mg/dl (0.6-1.2) 06/02/24 08:23 POC Creatinine 0.8 mg/dl (0.6-1.3) 06/01/24 17:44 Est Cr Clr Drug Dosing 89.2 ml/min 06/02/24 08:23 eGFR 94.19 06/02/24 08:23 BUN/Creatinine Ratio 12.7 (10-20) 06/02/24 08:23 Glucose 97 mg/dl (70-99(Fasting)) 06/02/24 08:23 POC Glucose (other) 109 mg/dl (70-99) H 06/01/24 17:44 Calcium 9.0 mg/dl (8.6-10.3) 06/02/24 08:23 POC Ioniz Calcium [place] 1.12 mmol/l (1.12-1.32) 06/01/24 17:44 Magnesium 1.9 mg/dl (1.7-2.4) 06/02/24 08:23 Total Bilirubin 0.8 mg/dl (0.2-1.0) 06/02/24 08:23 AST 17 U/L (13-39) 06/02/24 08:23 ALT 10 U/L (7-52) 06/02/24 08:23 Alkaline Phosphatase 73 U/L (34-104) 06/02/24 08:23 C-Reactive Protein 8.62 mg/dl (0-0.5) H 06/02/24 08:23 Total Protein 6.6 gm/dl (6.0-8.3) 06/02/24 08:23 Albumin 3.8 gm/dl (3.4-5.0) 06/02/24 08:23 Globulin 2.8 gm/dl (2.5-4.0) 06/02/24 08:23 Albumin/Globulin Ratio 1.4 (0.9-2) 06/02/24 08:23 Triglycerides 88 mg/dl (0-150) 06/02/24 08:23 Cholesterol 137 mg/dl (0-200) 06/02/24 08:23 LDL Cholesterol, Calc 59 mg/dl 06/02/24 08:23 VLDL Cholesterol, Calc 18 mg/dl (0-30) 06/02/24 08:23 HDL Cholesterol 60 mg/dl 06/02/24 08:23 Cholesterol/HDL Ratio 2.3 (0-5) 06/02/24 08:23 TSH 2.832 uIu/ml (0.300-4.500) 06/02/24 08:23 Blood Parasites ID Cancelled 06/01/24 17:39 Impressions Hip/Pelvis X-Ray 06/01/24 13:37 XR hip LT 2V w pelvis CLINICAL HISTORY: left hip pain COMPARISON: 10/25/2023 FINDINGS: There is an interval circular density around the lower aspect of the ball of the left hip prosthesis, likely a detached portion of the acetabular component. No other hardware complication seen. No acute fracture or dislocation. Stable severe degenerative changes at the right hip and lower lumbar spine. IMPRESSION: Interval change at the left hip prosthesis as described. No other acute findings seen. ACT 112: Negative or not required by law. Electronically signed by: Norbert Turner M.D. 06/01/2024 2:[address] 06/01/24 17:26 EXAMINATION: CT hip left without and with contrast CLINICAL HISTORY: Nontraumatic hip pain PRIORS: None TECHNIQUE: Contiguous axial images were obtained through the hip without and with the use of intravenous contrast. Sagittal and coronal reformations are noted. FINDINGS: A total hip arthroplasty is present with significant beam hardening artifact. Advanced osseous demineralization noted. Allowing for this, no periprosthetic fracture or lucency. A large amount of fluid present in the greater trochanteric bursa. Allowing for significant beam hardening artifact, this identified on image 93, series 9 and image 37, series 801. It measures 4.6 cm in anteroposterior dimension by 2.7 cm in transverse dimension by approximately 8.2 cm in craniocaudal dimension. On the contrast enhanced images, mild peripheral contrast enhancement is present with a thin capsule. Moderate inflammatory change present adjacent to this, within the subcutaneous tissues of the right hip, image 76, series 9. The subcutaneous tissues extend out of the [id number]. No subcutaneous gas, skin thickening or radiopaque foreign body. With the patient in supine and a drainage needle parallel to the floor, it is 3.6 cm from the skin surface to the outer edge of the bursa, 5.0 cm to the middle of the bursal fluid and 6.1 cm to the femur or posterior wall of the bursa, should intervention be considered. No free bony or metal fragments are identified. Allowing for beam hardening artifact, no enhancing mass. No free fluid in the pelvis or hematoma. Urinary bladder distends normally. IMPRESSION: CT features of greater trochanteric bursitis with large amount of fluid in the bursa and peripheral contrast-enhancement, compatible with inflammation. Superimposed infection is not excluded. Large amount of subcutaneous edema is present adjacent to the greater trochanter without subcutaneous gas or a radiopaque foreign body. Orthopedic surgery consultation could be considered if appropriate. ACT 112: Positive. There are findings on this examination that require communication between the performing entity and the patient following Patient Test Result Information Act ([place] ACT 112) guidelines. Electronically signed by Merline Almaraz 06-01-2024 6:37 PM
[2024-06-02 12:32] VITALS: BP 152/72; PULSE 82; TEMP 98.2
--- NOTE | 2024-06-02 12:35 | Discharge Summary ---
Discharge Summary Date of Service June 02, 2024 Principal Dx & Hospital Course #1 = Principal Diagnosis (1) Hip pain: 1. Acute left hip pain consistent with probable greater trochanteric bursitis. ESr normal, CRP elevated. No trauma but has been increasing exercise the last 3 weeks. WIth complicated history of previous infected prosthesis of hip requiring washout and antibiotic bead placement. Then 3 subsequent dislocations requiring revision of arthroplasty 11/2023. Now with trochanteric bursitis, no evidence of sepsis but cannot rule out septic bursitis. Orthopedics has been consulted and recommends transfer to [place] where her Ortho surgeon is. Pt does report she has only been taking her chronic suppressive doxycycline therapy once daily rather than twice daily for the last 2-3 weeks as it was causing her a rash. Has a h/o MRSA joint infection. Stable for transfer to [place] -added IV morphine prn severe pain, continue oxycodone prn pain 2. Osteoarthritis. As above, also has OA severe in right hip, continue gabapentin, pain meds 3. Insomnia.continue trazodone 4. GERD. Continue pepcid 5. Anemia of chronic disease stable with a hemoglobin of 11.0 g/dL Dispo-dc to [place], accepting physician is Dr. Wong Notes For Next Care Provider Medication Changes From Visit none Admission HPI Per Admitting Provider This is a pleasant 71-year-old female with extensive history of her left hip. She has had multiple total hip arthroplasties the first 1 had to be revised due to recurrent dislocation. This revision most recently took place at [facility] November 2023. She presented here today with left hip pain ongoing for approximately 48 hours. No history of recent trauma. In the ER she had an abnormal left hip x-ray with a question of a derangement of her hardware. Consultation took place by the ER provider with the orthopod at [facility] who reviewed the films and stated that this was not a derangement of her hardware rather than a locking ring they put in with revisions and did not see any acute surgical issue by x-ray. The patient's pain was severe. She could not bear weight. They gave oxycodone and tramadol. We were called to admit to the hospital. However, we were recommended a CT of the extremity due to her pain being out of proportion to her x-ray findings and her extensive left hip history. CT of the extremity was abnormal and large fluid collection as described in the CAT scan report consistent with bursitis but infection cannot be ruled out. White blood cell count was reassuring. After CAT scan was resulted consultation took place with the ER provider with local orthopedics Dr. Davis who has consented to see the patient in consultation and possibly tap the bursa tomorrow. In the meantime we will admit the patient use as needed Tylenol and as needed oxycodone for pain control. Falls precautions. No chemical DVT prophylaxis tonight given the fact that they might tap the joint in the morning. Will use SCDs. Do a sed rate and a CRP. Discharge Exam Constitutional WD/WN, vitals as above Respiratory normal respiratory effort, lungs clear to auscultation Cardiovascular RRR, no murmur, no edema Gastrointestinal (Abdomen) normal bowel sounds, soft, nontender, no hepatosplenomegaly Musculoskeletal left hip incisional scars, no erythema +TTP over left greater trochanter Psychiatric A+Ox3, euthymic affect Discharge Plan Discharge Items Patient Disposition: Transfer Acute Care Hospital Reason For Visit: L HIP PAIN Discharge Diagnosis: Left hip bursitis Condition on Discharge: Fair Activity: As commented below Exercise/Sports: Rest today Non-emergency contact: Primary Care Provider and Surgeon Call non-emergency contact if: you have any medication questions, your symptoms worsen and you have a fever Follow-up/Referrals: Dao Jefferson PA-C [Primary Care Provider] - Diet: Regular [facility] Attending Provider Instructions: Transferred to [facility] [employer] Provider Instructions: Discussed plan with Dr. Herring Images pushed to Prepared Response system for review by orthopedist at [place] Plan is to discharge to [facility] under the care of Dr. Yoseph Wong. Patient understands this Transfer paperwork completed She will be a MedSur to [facility] transfer via S Transfer center at [place] and [facility] were both contacted and transfer is being processed. Pending Studies at Discharge: No Stand-Alone Forms: My [facility] Skilled Items Patient informed of condition?: Yes DNR: Yes Discharge Level of Care: Other Communicable Disease: No Discharge Prognosis: Stable Lines: Peripheral IV Urinary Catheter: No Medications and DC Order Prescriptions: Continued gabapentin 600 mg tablet 600 mg PO DAILY famotidine 40 mg tablet 40 mg PO DAILY gabapentin 400 mg capsule 400 mg PO UD Rx Instructions: will start her 400 mg when she finishes the 600 mg doses. trazodone 100 mg tablet 200 mg PO HS furosemide 20 mg tablet 20 mg PO DAILY PRN (Reason: Edema) cetirizine 10 mg Tablet 10 mg PO DAILY B Complex 1 tab PO QAM Rx Instructions: otc unknown dose multivitamin [Multi-Vitamin] Tablet 1 tab PO QAM potassium chloride 10 mEq tablet extended release 10 meq PO DIRECTED PRN (Reason: take with fluid pill) tramadol 50 mg tablet 50 mg PO DIRECTED PRN (Reason: Pain) acetaminophen [Tylenol Ex Str Rapid Release] 500 mg Tablet 1,500 mg PO BID Probiotic 1 cap PO DAILY Rx Instructions: otc unknown dose Vitamin D3 1 cap PO QAM Rx Instructions: otc unknown dose vitamin E 1 cap PO QAM Rx Instructions: otc unknown dose Changed doxycycline monohydrate 100 mg capsule 100 mg PO BID Qty: 60 0RF Rx Instructions: per pt she takes only once daily instead of twice daily Discharge Orders: Discharge Order (Routine); Ordered 06/02/24 Ordered By: Quiana Herring Admission Data Admit Date/Time: 06/01/24 21:09 Attending Provider: Quiana Herring Admit Provider: Jose Guerra Primary Care Provider: Dao Jefferson Other Providers: Jonny Davis Hospital Stay Data Consultations 06/01/24 21:07 Consult Orthopedic Surgery Stat 06/02/24 12:06 Burn CD for patient Routine Diagnostic Imagining Performed 06/01/24 17:26 CT hip LT wo/w con Stat Pending Results Patient Have Any Pending Studies at Discharge: No Discharge Instructions Given to Patient (Per Discharging Provider) Transferred to [place] Total Time Total Time Spent Total Time Spent (In Minutes): 35 min Total Time Includes: Examination of the Patient, Discharge Planning, Medication Reconciliation and Communication With Other Providers (MISHEL Gill PA-C from Ortho) Coding Level of Care Code 92563 INP/OBS DISCH >30 MIN Diagnoses Hip pain M25.552 Laterality: left
[2024-06-02] MEDS ORDERED: DOXYCYCLINE HYCLATE 100 MG CAP PO SCH (21:00)
== END 2024-06-02 13:05 | disposition short-term general hospital (02) ==
LOC: 3N 13:25 → ED 13:25 → SUATTDRO 21:09 → 3N 21:49